=== PATIENT | female | born 1970 | race Caucasian/White ===

== ENCOUNTER 2017-01-28 08:15 | Inpatient (IN) | payer OTHER ==
[2017-01-28] VITALS (7 sets, daily range): BP systolic 101–134; BP diastolic 52–71; PULSE 67–79; RESP 18–19; TEMP 97.6–97.8
[~2017-01-28 08:15] MED LIST: LORTA5 PO
[2017-01-28] MEDS ORDERED: OXYTOCIN 30 UNITS-500ML PREMIX 500 ML ONE (08:30)
[2017-01-28] MEDS ORDERED: LIDOCAINE HCL 1% 50 ML VIAL ONE (08:30)
[2017-01-28] MEDS ORDERED: LACTATED RINGER'S 1000 ML INJ 1,000 ML IV SCH (08:33)
[2017-01-28] MEDS ORDERED: LACTATED RINGER'S 1000 ML INJ 1,000 ML IV PRN (08:33)
[2017-01-28] MEDS ORDERED: SODIUM CHLORID 0.9% 500 ML INJ 500 ML IV PRN (08:45)
[2017-01-28] MEDS ORDERED: LIDOCAINE HCL 1% 50 ML VIAL INFIL PRN (08:45)
[2017-01-28] MEDS ORDERED: CITRIC ACID-SODIUM CITRATE LIQ 30 ML UDC PO SCH (08:45)
[2017-01-28] MEDS ORDERED: LIDOCAINE HCL 1% 50 ML VIAL I-DERMAL PRN (08:45)
[2017-01-28] MEDS ORDERED: ONDANSETRON HCL 4 MG/2 ML VIAL IV PRN (08:45)
[2017-01-28] MEDS ORDERED: MINERAL OIL 10 ML VIAL TOPICAL PRN (08:45)
[2017-01-28] MEDS ORDERED: OXYTOCIN 30 UNITS-500ML PREMIX 500 ML IV ONE (08:45)
[2017-01-28] MEDS ORDERED: SODIUM CHLOR 0.9% 1000 ML INJ 1,000 ML IV PRN (08:53)
[2017-01-28 08:58] LABS: AUTOMATED NEUTROPHIL # 11.2 TH/MM3 (1.8-7.7); BASOPHIL % 0.3 % (0.0-2.0); EOSINOPHIL % 0.2 % (0.0-4.0); HEMATOCRIT 34.1 % (35.0-46.0); HEMO FLAGS DIFF FINAL; LYMPH % 12.1 % (9.0-44.0); LYMPHOCYTE # 1.7 TH/MM3 (1.0-4.8); MEAN CELL VOLUME 91.8 FL (80.0-100.0); MEAN CORPUSCULAR HEMOGLOBIN 30.9 PG (27.0-34.0); MEAN CORPUSCULAR HGB CONC 33.7 % (32.0-36.0); MONO % 6.5 % (0.0-8.0); NEUT % 80.9 % (16.0-70.0); PLATELET COUNT 337 TH/MM3 (150-450); RED BLOOD COUNT 3.71 MIL/MM3 (4.00-5.30); RED CELL DISTRIBUTION WIDTH 13.3 % (11.6-17.2); WHITE BLOOD COUNT 13.9 TH/MM3 (4.0-11.0)
[2017-01-28] MEDS ORDERED: SODIUM CHLORIDE 0.9% FLUSH 10 ML FLUSH IV FLUSH SCH (09:00)
[2017-01-28] MEDS ORDERED: ACETAMINOPHEN 325 MG TAB PO PRN (09:00)
[2017-01-28] MEDS ORDERED: DOCUSATE SODIUM 50 MG/SENNA 8.6 MG TAB PO PRN (09:00)
[2017-01-28] MEDS ORDERED: SODIUM CHLORIDE 0.9% FLUSH 10 ML FLUSH IV FLUSH PRN (09:00)
[2017-01-28] MEDS ORDERED: ONDANSETRON ODT 4 MG TAB PO PRN (09:00)
[2017-01-28] MEDS ORDERED: ALUMINUM/MAGNESIUM/SIMETH 30 ML CUP PO PRN (09:00)
[2017-01-28] MEDS ORDERED: ZOLPIDEM TARTRATE 5 MG TAB PO PRN (09:00)
[2017-01-28] MEDS ORDERED: BENZOCAINE 20% TOPICAL SPRAY 60 ML CAN TOPICAL PRN (09:00)
[2017-01-28] MEDS ORDERED: WITCH HAZEL 50%/GLYCERIN 12.5% 40 PAD JAR TOPICAL PRN (09:00)
--- NOTE | 2017-01-28 09:01 | HHI.HP ---
HPI Chief Complaint Contractions and LOF Date Seen: Jan 28, 2017 Travel History International Travel<30 Days: No Contact w/Intl Traveler<30Days: No Known Affected Area: No History of Present Illness HPI 47 yo at 37w 2d per SHERIE of 02-17-17, presents via EMS with contractions for several hours and LOF. Reports clear fluid leaking since 0400. Patient denies VB. Reports good FM. No care this . Para: 3 : 4 History Past Medical History Medical History: Denies Significant Hx Obstetric History Obstetric History FT x 3. BBB 8# 3oz Past Surgical History Surgical History: No Previous Surgery Family History Family History: Negative Social History Alcohol Use: No Tobacco Use: No Substance Abuse: Yes (Marijuana use in the past, last use unknown) Allergies-Medications (Allergen,Severity, Reaction): Coded Allergies: No Known Allergies (Verified , 01/28/17) Home Meds Active Scripts Hydrocodone-Acetaminophen 5-325 mg ([place] 5-325 mg)5 mg/325 mg Tab1 Tab PO Q6H PRN (PAIN) #15 TAB Prov:Ramón Callahan MD 07/24/15 Physical Exam AFVSS BP 134/71 Narrative GENERAL: Well-nourished, well-developed patient. SKIN: Warm and dry. HEAD: Normocephalic and atraumatic. EYES: No scleral icterus. No injection or drainage. ENT: No nasal drainage noted. Mucous membranes pink. Airway patent. NECK: Supple, trachea midline. No JVD. CARDIOVASCULAR: Regular rate and rhythm without murmurs, gallops, or rubs. RESPIRATORY: Breath sounds equal bilaterally. No accessory muscle use. BREASTS: Bilateral exam showed no masses , no retractions, no nipple discharge. ABDOMEN/GI: Abdomen soft, non-tender, bowel sounds present, no rebound, no guarding Gravid to [-] weeks size Fundal Height: [-] GENITOURINARY: External Genitalia: intact and normal in appearance BUS glands: [-] Cervix: [-] Dilatation: [9] Effacement: [90] Station: [0] Presentation: [-] Membranes: [ruptured] Uterine Contractions: [irregular] FHT's: discontinous tracing secondary to maternal movement Category: [-] Baseline: [140s] Reactive: [-] Variability: [moderate] Decels: [occasional variables] EXTREMITIES: No cyanosis or edema. BACK: Nontender without obvious deformity. No CVA tenderness. NEUROLOGICAL: Awake and alert. Motor and sensory grossly within normal limits. Five out of 5 muscle strength in all muscle groups. Normal speech. Data Data Orders Oxytocin 30 Units-500ml Premix (Pitocin (01/28/17 08:30) Lidocaine 1% Inj (50 Ml) (Xylocaine 1% I (01/28/17 08:30) Rubella Immune Status (01/28/17 08:33) Hepatitis Profile (01/28/17 08:33) Rapid Plasma Regin (Rpr) W Ttr (01/28/17 08:33) Type And Screen (01/28/17 08:33) Complete Blood Count With Diff (01/28/17 08:33) No Care Spec Serology (01/28/17 08:33) Special Serology (01/28/17 08:33) Admit To Inpatient (01/28/17 ) Code Status (01/28/17 08:33) Vital Signs (Adult) .Per protocol (01/28/17 08:33) ^ Heart (01/28/17 08:33) ^ Amnioinfusion (01/28/17 08:33) Urinary Catheter Management .ONCE (01/28/17 08:33) Lactated Ringer's 1000 Ml Inj (Lr 1000 M (01/28/17 08:33) Lactated Ringer's 1000 Ml Inj (Lr 1000 M (01/28/17 08:33) Sodium Chlorid 0.9% 500 Ml Inj (Ns 500 M (01/28/17 08:45) Sodium Chlor 0.9% 1000 Ml Inj (Ns 1000 M (01/28/17 08:53) Lidocaine 1% Inj (50 Ml) (Xylocaine 1% I (01/28/17 08:45) Citric Acid-Sodium Citrate Liq (Bicitra (01/28/17 08:45) Ondansetron Inj (Zofran Inj) (01/28/17 08:45) Fentanyl Inj (Fentanyl Inj) (01/28/17 08:45) Fentanyl Inj (Fentanyl Inj) (01/28/17 08:45) Hold Clot (01/28/17 08:33) Abo/Rh Blood Type (01/28/17 08:33) Urinalysis - C+S If Indicated (01/28/17 08:33) Resp Oxygen Non Rebreathe Mask (01/28/17 ) ^ Epidural / Intrathecal Infus (01/28/17 08:33) Oxytocin 30 Units-500ml Premix (Pitocin (01/28/17 08:45) Lidocaine 1% Inj (50 Ml) (Xylocaine 1% I (01/28/17 08:45) Light Mineral Oil (Muri-Lube Oil) (01/28/17 08:45) Inpatient Certification (01/28/17 ) Specimen To Be Collected PRN (01/28/17 08:33) Vital Signs (Adult) .QSHIFT (01/28/17 08:55) Activity Oob Ad Kaley (01/28/17 08:55) Ice / Cold Pack PRN (01/28/17 08:55) ^ Discontinue Iv (01/28/17 08:55) ^ Sitz Bath PRN (01/28/17 08:55) ^ Massage (01/28/17 08:55) ^ Rhogam (01/28/17 08:55) Urinary Catheter Management .PRN (01/28/17 08:55) Diet Regular Basic (01/28/17 Breakfast) Sodium Chloride 0.9% Flush (Ns Flush) (01/28/17 09:00) Sodium Chloride 0.9% Flush (Ns Flush) (01/28/17 09:00) Acetaminophen (Tylenol) (01/28/17 09:00) Ibuprofen (Motrin) (01/28/17 09:00) Benzocaine 20% Top Spr (Americaine 20% T (01/28/17 09:00) Witch Yesenia-Glycerin Pad (Tucks Pads) (01/28/17 09:00) Docusate Sodium-Senna (Angela-Colace) (01/28/17 09:00) Zolpidem (Ambien) (01/28/17 09:00) Cnmtfis-Swrst-[place] Inj (M-M-R Ii Inj) (01/28/17 16:00) Tiyh-Ruq-Hcxrgr (Booster) Inj (Boostrix (01/28/17 16:00) Al-Mag Hy-Si 40-40-4 Mg/Ml Liq (Mag-Al P (01/28/17 09:00) Ondansetron Odt (Zofran Odt) (01/28/17 09:00) Labs Laboratory Tests Test 01/28/17 08:26 White Blood Count 13.9 Red Blood Count 3.71 Hemoglobin 11.5 Hematocrit 34.1 Mean Corpuscular Volume 91.8 Mean Corpuscular Hemoglobin 30.9 Mean Corpuscular Hemoglobin 33.7 Concent Red Cell Distribution Width 13.3 Platelet Count 337 Mean Platelet Volume 7.3 Neutrophils (%) (Auto) 80.9 Lymphocytes (%) (Auto) 12.1 Monocytes (%) (Auto) 6.5 Eosinophils (%) (Auto) 0.2 Basophils (%) (Auto) 0.3 Neutrophils # (Auto) 11.2 Lymphocytes # (Auto) 1.7 Monocytes # (Auto) 0.9 Eosinophils # (Auto) 0.0 Basophils # (Auto) 0.0 CBC Comment DIFF FINAL Differential Comment Assessment/Plan Assessment and Plan 47 yo at 37w 2d, active labor/SROM/no care/AMA. Will admit. Obtain labs. Anticipate . Infant up for adoption- Management Planner consult. Madison Black MD Jan 28, 2017 09:01
--- NOTE | 2017-01-28 09:06 | PD.OB.DELI ---
Delivery Date: Jan 28, 2017 Anesthesia: None Episiotomy: None Vaginal Delivery: Normal, Spontaneous Presentation: Occiput anterior Nuchal Cord: None Delayed cord clamping (45 sec): No : Female One Minute : 8 Five Minute : 9 Weight: 3105 g Infant Care: Suctioned, Responded to stimulation Placenta: Spontaneous delivery, Intact, 3 vessel cord Laceration: Vaginal laceration, 1 deg Additional Information Vaginal delivery over an intact perineum. Apgars were 8/9. weight 3105 grams. Placenta delivered spontaneously intact with 3-vessel cord. There was a first degree laceration repaired with a figure of eight 2.0 chromic suture. Baby will be placed up for adoption. (Gage Robertson MD R1) Attestation Present for delivery and repair. Patient and infant stable in recovery. (Madison Black MD) Gage Robertson MD R1 Jan 28, 2017 09:06 Madison Black MD Jan 28, 2017 10:28
[2017-01-28] MEDS: IBUPROFEN 600 MG TAB PO PRN ×3 (09:23→19:24)
[2017-01-28 09:51] LABS: RUBELLA IGG ANTIBODY 49.4 IU/mL (10.0-500.0); RUBELLA STATUS IMMUNE (IMMUNE)
[2017-01-28 10:15] LABS: RAPID PLASMA REAGIN SCREEN NON-REACTIVE (NON-REACTVE)
[2017-01-28 11:35] LABS: AMPHETAMINE, URINE NEG (NEG); BARBITURATES, URINE NEG (NEG); COCAINE, URINE NEG (NEG)
[2017-01-28 11:46] LABS: BLOOD, URINE LARGE (NEG); COMMENT (UR) CULT NOT INDICATED; CULTURE IF INDICATED CULT NOT INDICATED; GLUCOSE,URINE NEG (NEG); HYALINE CAST, URINE 1 /lpf (RARE); KETONE, URINE 10 mg/dL (NEG); NITRITE,URINE NEG (NEG); SQUAMOUS EPITHELIAL CELL URINE <1 /hpf (0-5); URINE COLOR YELLOW (YELLW/STRAW)
[2017-01-28] MEDS ORDERED: DIPHTH/TETANUS/ACEL PERTUSSIS (BOOSTER) 0.5 ML VIAL/PFS IM ONE (16:00)
[2017-01-28] MEDS ORDERED: MEASLES, MUMPS, RUBELLA VACCINE 0.5 ML VIAL SQ ONE (16:00)
[2017-01-28] MEDS: oxyCODONE/ACETAMINOPHEN 5 MG/325 MG TAB PO PRN (23:30)
[2017-01-29] MEDS: IBUPROFEN 600 MG TAB PO PRN ×2 (06:30→12:56)
[2017-01-29] MEDS: oxyCODONE/ACETAMINOPHEN 5 MG/325 MG TAB PO PRN (06:34)
--- NOTE | 2017-01-29 07:29 | HHI.OB ---
Subjective Post Day: 1 Remarks day # 1. AFVSS overnight. Pain controlled. Decreased lochia. Denies dysuria. No breast tenderness. She is feeding the baby via bottle. Appetite good. No nausea or vomiting. Positive flatus. Negative bowel movement. Ambulating well. Denies calf pain, shortness of breath, or cough. Otherwise, she is doing well this morning and has no other complaints. (Alek Dillon MD R2) Objective Vitals/I&O Vital Signs Date Time Temp Pulse Resp B/P Pulse Ox O2 Delivery O2 Flow Rate FiO2 01/29/17 00:30 16 01/28/17 10:45 97.8 74 18 113/71 01/28/17 10:00 18 01/28/17 09:46 67 105/52 01/28/17 09:31 79 101/60 01/28/17 09:30 97.6 19 01/28/17 09:28 72 107/65 01/28/17 09:09 67 134/71 Objective Remarks GENERAL: Well-nourished, well-developed patient. CARDIOVASCULAR: Regular rate and rhythm without murmurs, gallops, or rubs. RESPIRATORY: Breath sounds equal bilaterally. No accessory muscle use. ABDOMEN/GI: Abdomen soft, non-tender. Fundus: Firm, non-tender at umbilicus. GENITOURINARY: Light to moderate bleeding. EXTREMITIES: No cyanosis or edema, non-tender, without signs of DVT. Medications and IVs Current Medications Medications (Trade) Dose Ordered Sig/Goldie Route Start Time Stop Time Status Last Admin Lactated Ringer's 1,000 ml @ 125 mls/hr Q8H IV 01/28/17 08:33 Lactated Ringer's 1,000 ml @ 3,000 mls/hr Q20M PRN IV 01/28/17 08:33 Sodium Chloride 500 ml @ 1,000 mls/hr ONCE PRN IV 01/28/17 08:45 01/30/17 08:44 (NS 1000 ml Inj) 1,000 ml @ 100 mls/hr Q10H PRN IV 01/28/17 08:53 (Zofran Inj) 4 mg Q6H PRN IV 01/28/17 08:45 (fentaNYL INJ) 50 mcg Q1H PRN IV PUSH 01/28/17 08:45 (fentaNYL INJ) 100 mcg Q1H PRN IV PUSH 01/28/17 08:45 (Muri-Lube Oil) 10 ml UNSCH PRN TOPICAL 01/28/17 08:45 (NS Flush) 2 ml BID IV FLUSH 01/28/17 09:00 (NS Flush) 2 ml UNSCH PRN IV FLUSH 01/28/17 09:00 (Tylenol) 650 mg Q4H PRN PO 01/28/17 09:00 01/28/17 19:25 (Motrin) 600 mg Q6H PRN PO 01/28/17 09:00 01/29/17 06:30 (Americaine 20% Top Spr) 1 spray Q4H PRN TOPICAL 01/28/17 09:00 01/28/17 13:37 (Tucks Pads) 1 applic QID PRN TOPICAL 01/28/17 09:00 01/28/17 13:37 (Angela-Colace) 2 tab Q12H PRN PO 01/28/17 09:00 01/28/17 19:25 (Ambien) 5 mg HS PRN PO 01/28/17 09:00 (Mag-Al Plus Susp Liq) 15 ml Q8H PRN PO 01/28/17 09:00 01/28/17 20:07 (Zofran Odt) 4 mg Q6H PRN PO 01/28/17 09:00 (Flu (Quadrivalent) Vaccine Inj) 0.5 ml ONCE ONCE IM 01/29/17 10:00 01/29/17 10:01 (Percocet 5-325 Mg) 2 tab Q6H PRN PO 01/28/17 23:00 01/29/17 06:34 (Alek Dillon MD R2) Assessment/Plan Problem List: (1) Vaginal delivery (2) care following vaginal delivery Assessment and Plan 47 y/o female who is PPD# 1 s/p . -Continue routine care. -Percocet and Motrin PRN pain. -Encouraged OOB. Advised pelvic rest for 6 wks. -Will need a f/u appt. within 6 wks. -Re: ctrl, she would like to schedule to get her tubes tied. -D/c in 1-2 more days. wdw OB attending Discharge Planning Discharge planning for tomorrow (Alek Dillon MD R2) Collaborating MD Comments Agree with care management (Linda Hamilton MD) Alek Dillon MD R2 Jan 29, 2017 07:29 Linda Hamilton MD Jan 29, 2017 08:19
[2017-01-29 07:53] VITALS: BP 132/84; PULSE 80; RESP 20; TEMP 98.1
[2017-01-29] MEDS ORDERED: INFLUENZA VIRUS VACCINE (QUADRIVALENT) 0.5 ML SYR IM ONE (10:00)
== END 2017-01-29 13:56 | disposition home or self-care (01) | DRG 775 ==
LOC: HOBED 08:15 → H2EA 08:18 → H2EB 08:36 → H1EA 10:25
PROVIDERS: ADMIT Obstetrics & Gynecology; ATTEND Obstetrics & Gynecology
PROC: 10E0XZZ Delivery of Products of Conception, External Approach (ICD-10-PCS; principal; 2017-01-28)
PROC: 0HQ9XZZ Repair Perineum Skin, External Approach (ICD-10-PCS; 2017-01-28)
DX: O70.0 First degree perineal laceration during delivery (principal); O09.33 Supervision of pregnancy with insufficient antenatal care, third trimester; Z37.0 Single live birth; Z3A.37 37 weeks gestation of pregnancy
CPT/HCPCS: 59025; 80074; 80307; 81001; 85025; 86592; 86703; 86762; 86850; 86900; 86901; 88307; 99285; J2590

== ENCOUNTER 2017-01-29 23:54 | Emergency (ER) | payer OTHER ==
[~2017-01-29] VITALS: Ht 182.9 cm; Wt 91.0 kg
[2017-01-29 23:57] VITALS: BP 152/80; PULSE 95; RESP 20; TEMP 97.9; O2SAT 95
--- NOTE | 2017-01-30 07:54 | PD ---
History of Present Illness Date Seen: Jan 30, 2017 Time Seen: 00:30 History of Present Illness This patient is 47-year-old white female who is a 1 day from vaginal delivery. She delivered and the baby up for adoption. That she requested to be discharged home on the same day and states she was having normal exam and progress she was allowed to go home. She now returns some 12 hours later for pain bleeding and distention of her stomach. On exam the patient has slight distention of the abdomen of gas uterus is at the umbilicus and firm, there is no excessive bleeding noted here on the triage area I explained the patient that she's having some normal events with the occasional passage of blood clot per vagina and some abdominal distention due to some mild constipation and I recommended she take milk of magnesia or other antacids to try and solve her gaseous state. She is to take Motrin or Advil for cramps bedrest heating pad and take plenty of fluids, and she was discharged from OB ED Milan Willett II, MD Jan 30, 2017 07:54
--- NOTE | 2017-01-30 08:19 | PD ---
HPI Travel History International Travel<30 Days: No Contact w/Intl Traveler<30Days: No Known Affected Area: No Allergies-Medications (Allergen,Severity, Reaction): Coded Allergies: No Known Allergies (Verified , 01/29/17) Home Meds Active Scripts Hydrocodone-Acetaminophen 5-325 mg ([place] 5-325 mg)5 mg/325 mg Tab1 Tab PO Q6H PRN (PAIN) #15 TAB Prov:Ramón Callahan MD 07/24/15 Physical Exam Vital Signs Date Time Temp Pulse Resp B/P Pulse Ox O2 Delivery O2 Flow Rate FiO2 01/29/17 23:57 97.9 95 20 152/80 95 Room Air Narrative ABDOMEN/GI: Abdomen soft, non-tender, bowel sounds present, no rebound, no guarding Fundal Height: [-]at umbilicus EXTREMITIES: No cyanosis or edema. BACK: Nontender without obvious deformity. No CVA tenderness. NEUROLOGICAL: Awake and alert. Motor and sensory grossly within normal limits. Five out of 5 muscle strength in all muscle groups. Normal speech. Data Data Orders Attending Discharge Order (01/30/17 ) MDM Diagnosis Diagnosis: Primary Impression: Abdominal pain Additional Impression: Bloated abdomen Disposition: 01 DISCHARGE HOME Condition: Stable Patient Instructions: General Instructions Additional Instructions: RETURN FOR HEAVY VAGINAL BLEEDING WITH CLOTS RETURN FOR HEADACHE, BLURRED VISION, SPOTS BEFORE YOUR EYES LIMITED ACTIVITY FOR THE NEXT 48 HOURS KEEP SCHEDULED FOLLOWUP APPOINTMENT Departure Forms: Tests/Procedures Milan Willett II, MD Jan 30, 2017 08:19
== END 2017-01-30 09:01 | disposition home or self-care (01) ==
LOC: HOBED 23:54
DX: O90.89 Other complications of the puerperium, not elsewhere classified (principal); R14.0 Abdominal distension (gaseous); K59.00 Constipation, unspecified; R10.9 Unspecified abdominal pain
CPT/HCPCS: 99283

== ENCOUNTER 2017-02-02 21:58 | Emergency (ER) | payer OTHER ==
[~2017-02-02] VITALS: Ht 182.9 cm; Wt 78.2 kg
[2017-02-02 22:12] VITALS: BP 138/98; PULSE 109; RESP 22; TEMP 98.8; O2SAT 95
[2017-02-02] MEDS ORDERED: LORazepam 2 MG/ML VIAL IV PUSH ONE (22:45)
[2017-02-02 23:02] LABS: AUTOMATED NEUTROPHIL # 7.4 TH/MM3 (1.8-7.7); BASOPHIL # 0.1 TH/MM3 (0-0.2); BASOPHIL % 0.5 % (0.0-2.0); EOSINOPHIL % 0.4 % (0.0-4.0); HEMO FLAGS DIFF FINAL; LYMPH % 17.7 % (9.0-44.0); LYMPHOCYTE # 1.8 TH/MM3 (1.0-4.8); MEAN CELL VOLUME 92.1 FL (80.0-100.0); MEAN CORPUSCULAR HEMOGLOBIN 31.7 PG (27.0-34.0); MEAN CORPUSCULAR HGB CONC 34.4 % (32.0-36.0); NEUT % 74.4 % (16.0-70.0); PLATELET COUNT 529 TH/MM3 (150-450); RED BLOOD COUNT 4.01 MIL/MM3 (4.00-5.30); RED CELL DISTRIBUTION WIDTH 13.7 % (11.6-17.2)
[2017-02-02 23:24] LABS: BICARBONATE 22.5 MEQ/L (21.0-32.0); POTASSIUM 3.5 MEQ/L (3.5-5.1)
[2017-02-02 23:40] LABS: BACTERIA, URINE RARE /hpf; BLOOD, URINE MOD (NEG); COMMENT (UR) CULTURE INDICATED; CULTURE IF INDICATED CULTURE INDICATED; GLUCOSE,URINE NEG (NEG); HYALINE CAST, URINE 1 /lpf (RARE); KETONE, URINE NEG (NEG); MUCUS URINE FEW /lpf (OCC); NITRITE,URINE NEG (NEG); SQUAMOUS EPITHELIAL CELL URINE 2 /hpf (0-5); URINE COLOR YELLOW (YELLW/STRAW)
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
[2017-02-03 02:04] LABS: AMPHETAMINE, URINE NEG (NEG); BARBITURATES, URINE NEG (NEG); COCAINE, URINE POS (NEG)
[2017-02-03 02:58] VITALS: BP 111/57; PULSE 64; RESP 17; O2SAT 98
[2017-02-03 06:41] VITALS: BP 111/57; PULSE 71; RESP 18; O2SAT 98
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
[2017-02-03 15:39] VITALS: BP_SYST 103; PULSE 76; RESP 18; TEMP 97.8; O2SAT 99
[2017-02-03 22:12] VITALS: BP 106/63; PULSE 59; RESP 18; O2SAT 97
[2017-02-04 02:04] VITALS: BP 123/82; PULSE 75; RESP 19; O2SAT 95
[2017-02-04 06:30] VITALS: BP 123/69; PULSE 73; RESP 18; O2SAT 95
--- NOTE | 2017-02-04 09:27 | HHI.PYPN ---
Subjective Remarks Patient seen and examined. Chart reviewed. Case d/w RN. Patient passed an uneventful evening. This morning for me, patient is clear-thinking with no evidence of ongoing psychosis. Mood fair; no depressive or hypomanic/manic symptoms in evidence. Denies SI/HI. Denies AVH. No ongoing delusional material. No evidence of unstable mood, anxiety, psychotic disorder. Admits to recent use of flakka and crack cocaine. Past psych history: Includes history of depression. Not presently in outpatient psychiatric care. On no psychotropics. Denies any psychiatric admissions or suicide attempts. Family history: Denies family history of serious mental illness or suicide. Patient is requesting discharge from the ED. Review of Systems Except as stated in HPI: all other systems reviewed are Neg Objective Alert: Yes [place]: Person, Place, Date, Situation Mood: Calm Affect: Blunted Memory Intact: Comment (seems at least fair on clinical exam) Hallucinations: Other (denies audiovisual hallucinations) Delusions: No Delusion Type: Other (no delusional material) Suicidal: Ideation (denies suicidal ideation) Homicidal: Ideation (denies homicidal ideation) Insight/Judgement Poor, particularly with respect substance use Remarks No motoric abnormalities noted. Thought process linear. Grooming and hygiene fair. Labs Date/Time Procedure Status Source Growth 02/02/17 22:50 Urine Culture - Preliminary Resulted Urine Clean Catch NO GROWTH IN 24 HOURS. Labs reviewed. Vitals/IOs Vital Signs Date Time Temp Pulse Resp B/P Pulse Ox O2 Delivery O2 Flow Rate FiO2 02/04/17 06:30 73 18 123/69 95 Room Air 02/03/17 15:39 97.8 Assessment & Plan Problem List: (1) Substance-induced psychotic disorder with delusions Assessment & Plan: Resolved ICD Code: F19.950 (2) Stimulant abuse Assessment & Plan: Flakka ICD Code: F15.10 (3) Cocaine abuse ICD Code: F14.10 Assessment & Plan Drug-induced psychotic disorder now resolved. No evidence of any unstable mood , anxiety or psychotic disorder in this patient at this time. Denies SI or HI. Appears to be attending to basic needs. Patient does not meet Galvez act criteria. Lift Galvez act. Patient is unfortunately pre-contemplative with regards to changing her pattern of substance use and declines my offer of transfer to addiction treatment facility. Nurse to provide outpatient referral for same on discharge. RN educated patient's family member re: [place] Act. Patient is otherwise psychiatrically clear for discharge from the ED. Case discussed with RN. Justification for Cont. Inpt. . Request HC Surrog/Guard Advoc?: No Ramón Eldridge MD Feb 04, 2017 09:27
[2017-02-04 10:00] VITALS: BP 118/64; PULSE 73; RESP 18
== END 2017-02-04 12:07 | disposition home or self-care (01) ==
LOC: NEPA 21:58 → NEPJ 02-04 12:07
DX: O90.89 Other complications of the puerperium, not elsewhere classified (principal); F19.950 Other psychoactive substance use, unspecified with psychoactive substance-induced psychotic disorder with delusions; F15.10 Other stimulant abuse, uncomplicated; F14.10 Cocaine abuse, uncomplicated; Z72.0 Tobacco use; Z86.79 Personal history of other diseases of the circulatory system
CPT/HCPCS: 80048; 80307; 81001; 85025; 87086; 96374; 99285; J2060

== ENCOUNTER 2017-03-20 06:09 | Inpatient (IN) | payer OTHER ==
[~2017-03-20] VITALS: Ht 172.7 cm; Wt 65.6 kg
[2017-03-20] VITALS (12 sets, daily range): BP systolic 89–115; BP diastolic 55–69; PULSE 71–150; RESP 17–25; TEMP 96.5–100.6; O2SAT 94–100
[2017-03-20] MEDS ORDERED: SODIUM CHLOR 0.9% 1000 ML INJ 1,000 ML IV SCH (06:17)
--- NOTE | 2017-03-20 06:29 | PD ---
HPI Chief Complaint: Psychiatric Symptoms Time Seen by Provider: 06:17 Travel History International Travel<30 days: No Contact w/Intl Traveler<30days: No Traveled to known affect area: No History of Present Illness HPI 47-year-old female presents to the emergency department restrained by police and police custody with acute altered mental status agitation and fighting and acute psychosis. Patient was found running through the streets and into traffic by the police partially clothed. Patient had to be tackled to the ground to be restrained by the police who report she did sustain some abrasions to her chest wall and abdomen and trunk while fighting off the police and also ran directly into a wall while trying to escape the police; subsequently successfully apprehended and brought to the hospital. Patient mentioned intermittently through her confused and altered state possible ingestion of flocka, cocaine, and alcohol. Patient repeatedly states that she is being stabbed and that someone has taken her baby and that she is being poisoned. Additional information is unable to be obtained and not available. PFSH Past Medical History Narrative Medical Review of medical records and nursing notes; heart murmur polysubstance abuse; nursing notes reviewed Cardiovascular Problems: Yes (MURMUR) Diminished Hearing: No Immunizations Current: Yes Tetanus Vaccination: Unknown Influenza Vaccination: No ?: Not : 5 Para: 3 Miscarriage: 1 : 1 Social History Alcohol Use: Yes Tobacco Use: Yes Substance Use: Yes (1 [employer] cigarettes, Flakka, Etoh occasionally, Crack weekly) Allergies-Medications (Allergen,Severity, Reaction): Coded Allergies: No Known Allergies (Verified , 03/20/17) Reported Meds & Prescriptions Reported Meds & Active Scripts Active Active Prescriptions or Reported Medications Unobtainable Review of Systems ROS Limitations: Clinical Condition, Intoxication, Altered Mental Status, Uncooperative, Combative Except as stated in HPI: all other systems reviewed are Neg Physical Exam Narrative GENERAL: Well-developed disheveled agitated combative and uncooperative altered female in no respiratory distress; GCS 12-13 SKIN: Warm and dry. HEAD: Atraumatic. Normocephalic. No palpable scalp soft tissue swelling or bony abnormality no noted abrasion or laceration. EYES: Pupils equal and round. No scleral icterus. No injection or drainage. ENT: No nasal bleeding or discharge. Mucous membranes pink and moist. NECK: Trachea midline. No JVD. Supple. No palpable bony step-off. CARDIOVASCULAR: Regular rate and rhythm. Chest wall: Multiple superficial abrasions to the left chest wall no lacerations no bony step-off or crepitus. RESPIRATORY: No accessory muscle use. Clear to auscultation. Breath sounds equal bilaterally. GASTROINTESTINAL: Abdomen soft, non-tender, nondistended. Hepatic and splenic margins not palpable. Multiple superficial abrasions to the abdominal wall. MUSCULOSKELETAL: Extremities without clubbing, cyanosis, or edema. No obvious deformities. Superficial abrasions to bilateral knees and hands. Patient demonstrates full range of motion of both upper and lower extremities. NEUROLOGICAL: Awake and alert. No obvious cranial nerve deficits. Motor grossly within normal limits. Five out of 5 muscle strength in the arms and legs. Normal speech. PSYCHIATRIC: Acutely altered and psychotic and combative. Data Data Last Documented VS Vital Signs Date Time Temp Pulse Resp B/P Pulse Ox O2 Delivery O2 Flow Rate FiO2 03/20/17 06:54 134 03/20/17 06:31 24 03/20/17 06:27 98 Room Air 03/20/17 06:14 115/69 Orders Electrocardiogram (03/20/17 06:17) Complete Blood Count With Diff (03/20/17 06:17) Comprehensive Metabolic Panel (03/20/17 06:17) Creatine Kinase (Cpk) (03/20/17 06:17) Prothrombin Time / Inr (Pt) (03/20/17 06:17) Act Partial Throm Time (Ptt) (03/20/17 06:17) Troponin I (03/20/17 06:17) Thyroid Stimulating Hormone (03/20/17 06:17) Urinalysis - C+S If Indicated (03/20/17 06:17) Blood Culture (03/20/17 06:17) Chest, Single Ap (03/20/17 06:17) Ct Brain W/O Iv Contrast(Rout) (03/20/17 06:17) Blood Glucose (03/20/17 06:17) Ecg Monitoring (03/20/17 06:17) Iv Access Insert/Monitor (03/20/17 06:17) Oximetry (03/20/17 06:17) Sodium Chloride 0.9% Flush (Ns Flush) (03/20/17 06:30) Sodium Chlor 0.9% 1000 Ml Inj (Ns 1000 M (03/20/17 06:17) Drug Screen, Random Urine (03/20/17 06:17) Alcohol (Ethanol) (03/20/17 06:17) Salicylates (Aspirin) (03/20/17 06:17) Tylenol (Acetaminophen) (03/20/17 06:17) Lorazepam Inj (Ativan Inj) (03/20/17 06:30) Magnesium (Mg) (03/20/17 06:17) Ed Urine Pregnancytest Poc (03/20/17 06:17) Lorazepam Inj (Ativan Inj) (03/20/17 06:30) Blood Culture (03/20/17 06:32) Lactic Acid Sepsis Protocol (03/20/17 06:32) Cefepime Inj (Maxipime Inj) (03/20/17 06:45) Vancomycin Inj (Vancomycin Inj) (03/20/17 06:45) Urinary Catheter Insert/Apply (03/20/17 06:32) Ondansetron Inj (Zofran Inj) (03/20/17 07:00) Sodium Chlor 0.9% 1000 Ml Inj (Ns 1000 M (03/20/17 07:00) Labs Laboratory Tests Test 03/20/17 06:20 White Blood Count 20.3 TH/MM3 Red Blood Count 4.30 MIL/MM3 Hemoglobin 13.0 GM/DL Hematocrit 39.5 % Mean Corpuscular Volume 91.8 FL Mean Corpuscular Hemoglobin 30.3 PG Mean Corpuscular Hemoglobin 33.0 % Concent Red Cell Distribution Width 13.7 % Platelet Count 519 TH/MM3 Mean Platelet Volume 7.9 FL Neutrophils (%) (Auto) 90.6 % Lymphocytes (%) (Auto) 5.9 % Monocytes (%) (Auto) 3.4 % Eosinophils (%) (Auto) 0.0 % Basophils (%) (Auto) 0.1 % Neutrophils # (Auto) 18.4 TH/MM3 Lymphocytes # (Auto) 1.2 TH/MM3 Monocytes # (Auto) 0.7 TH/MM3 Eosinophils # (Auto) 0.0 TH/MM3 Basophils # (Auto) 0.0 TH/MM3 CBC Comment DIFF FINAL Differential Comment Prothrombin Time 11.6 SEC Prothromb Time International 1.0 RATIO Ratio Activated Partial 29.1 SEC Thromboplast Time Salicylates Level 3.2 MG/DL MDM Medical Decision Making Medical Screen Exam Complete: Yes Emergency Medical Condition: Yes Medical Record Reviewed: Yes Interpretation(s) EKG sinus tachycardia rate 134 incomplete right bundle-branch block pattern QRS 98 ms QT 343 with QTC of 422 ms Differential Diagnosis Acute psychosis, polysubstance ingestion, ICH, CHI; unknown substance ingestion consider neuroleptic malignant syndrome, sepsis Narrative Course Patient placed in violent restraints; IV access obtained; patient placed on cardiac monitors; specimens collected and sent for resulting; patient administered Ativan 2 mg IV; normal saline bolus 1 L Patient ordered additional Ativan 2 mg IV; Patient sent for imaging studies Urinary catheter inserted rectal temperature 100.6F blood cultures and lactic acid obtained patient presumptively administered cefepime and vancomycin IV for sepsis unknown source EKG sinus tachycardia rate 134 incomplete right bundle-branch block pattern QRS 98 ms QT 343 with QTC of 422 ms Tetanus status current as of 01/2017 6:50 AM patient is identified to have leukocytosis 20,300 with left shift 90% neutrophils; patient has received presumptive IV antibiotic coverage and is on way to CT for imaging. Patient required Ativan 1 mg IV @ 0700 care signed over to Dr Tomas Sepsis Criteria SIRS Criteria (2 or more): Heart rate over 90, RR > 20 or PaCO2 < 32, WBC > 51962, < 4000 or > 10% bands Diagnosis Primary Impression: Substance-induced psychotic disorder with delusions Admitting Information Admitting Physician Requests: Admit Scripts Unable to Obtain Active Prescriptions or Reported Meds Anna Garg MD March 20, 2017 06:29
[2017-03-20] MEDS ORDERED: SODIUM CHLORIDE 0.9% FLUSH 10 ML FLUSH IVF PRN (06:30)
[2017-03-20] MEDS ORDERED: LORazepam 2 MG/ML VIAL IV PUSH ONE ×3 (06:30→07:15)
[2017-03-20] MEDS ORDERED: CEFEPIME INJ 2,000 MG in SODIUM CHLORIDE 0.9% INJ 100 ML IV ONE (06:45)
[2017-03-20] MEDS ORDERED: VANCOMYCIN INJ 1,000 MG in SODIUM CHLOR 0.9% 250 ML INJ 250 ML IV ONE (06:45)
[2017-03-20 06:47] LABS: AUTOMATED NEUTROPHIL # 18.4 TH/MM3 (1.8-7.7); BASOPHIL % 0.1 % (0.0-2.0); HEMATOCRIT 39.5 % (35.0-46.0); HEMO FLAGS DIFF FINAL; LYMPH % 5.9 % (9.0-44.0); LYMPHOCYTE # 1.2 TH/MM3 (1.0-4.8); MEAN CELL VOLUME 91.8 FL (80.0-100.0); MEAN CORPUSCULAR HEMOGLOBIN 30.3 PG (27.0-34.0); MONO % 3.4 % (0.0-8.0); NEUT % 90.6 % (16.0-70.0); PLATELET COUNT 519 TH/MM3 (150-450); RED CELL DISTRIBUTION WIDTH 13.7 % (11.6-17.2); WHITE BLOOD COUNT 20.3 TH/MM3 (4.0-11.0)
[2017-03-20 06:50] LABS: APTT (PATIENT) 29.1 SEC (24.3-30.1); PROTHROMBIN TIME - PATIENT 11.6 SEC (9.8-11.6)
[2017-03-20 06:57] LABS: ANION GAP 18 MEQ/L (5-15); AST (GOT) 51 U/L (15-37); BICARBONATE 16.4 MEQ/L (21.0-32.0); BLOOD UREA NITROGEN 26 MG/DL (7-18); CHLORIDE 101 MEQ/L (98-107); MAGNESIUM 2.1 MG/DL (1.5-2.5); SODIUM (NA) 135 MEQ/L (136-145)
[2017-03-20 07:00] LABS: BACTERIA, URINE FEW /hpf; BLOOD, URINE MOD (NEG); COMMENT (UR) CATH-CULTURE IND; CULTURE IF INDICATED CATH CULTURE IND; GLUCOSE,URINE NEG (NEG); HYALINE CAST, URINE 14 /lpf (RARE); KETONE, URINE NEG (NEG); MUCUS URINE FEW /lpf (OCC); NITRITE,URINE NEG (NEG); PH, URINE 5.5 (5.0-8.5); URINE COLOR YELLOW (YELLW/STRAW)
[2017-03-20] MEDS ORDERED: SODIUM CHLOR 0.9% 1000 ML INJ 1,000 ML IV ONE ×2 (07:00→08:00)
[2017-03-20] MEDS ORDERED: ONDANSETRON HCL 4 MG/2 ML VIAL IV PUSH ONE (07:00)
[2017-03-20 07:10] LABS: AMPHETAMINE, URINE NEG (NEG); BARBITURATES, URINE NEG (NEG); COCAINE, URINE POS (NEG)
[2017-03-20 07:12] LABS: ALKALINE PHOSPHATASE 130 U/L (45-117); ALT (GPT) 29 U/L (10-53); CREATINE KINASE 1000 U/L (26-192); GLOMERULAR FILTRATION RATE 36 ML/MIN (>89); TOTAL BILIRUBIN ADULT 0.5 MG/DL (0.2-1.0)
--- NOTE | 2017-03-20 07:15 | PD ---
Physical Exam Date Seen by Provider: March 20, 2017 Narrative Care assumed at 7 AM. The patient is being evaluated for acute psychosis, probably induced by flakka. The patient is very uncooperative. Data Data Last Documented VS Vital Signs Date Time Temp Pulse Resp B/P Pulse Ox O2 Delivery O2 Flow Rate FiO2 03/20/17 07:13 113 25 100/55 94 Nasal Cannula 2 03/20/17 06:14 100.6 Orders Electrocardiogram (03/20/17 06:17) Complete Blood Count With Diff (03/20/17:17) Comprehensive Metabolic Panel (03/20/17 06:17) Creatine Kinase (Cpk) (03/20/17 06:17) Prothrombin Time / Inr (Pt) (03/20/17:17) Act Partial Throm Time (Ptt) (03/20/17:17) Troponin I (03/20/17:17) Thyroid Stimulating Hormone (03/20/17:17) Urinalysis - C+S If Indicated (03/20/17 06:17) Blood Culture (03/20/17 06:17) Chest, Single Ap (03/20/17 06:17) Ct Brain W/O Iv Contrast(Rout) (03/20/17 06:17) Blood Glucose (03/20/17 06:17) Ecg Monitoring (03/20/17:17) Iv Access Insert/Monitor (03/20/17:17) Oximetry (03/20/17 06:17) Sodium Chloride 0.9% Flush (Ns Flush) (03/20/17 06:30) Sodium Chlor 0.9% 1000 Ml Inj (Ns 1000 M (03/20/17 06:17) Drug Screen, Random Urine (03/20/17 06:17) Alcohol (Ethanol) (03/20/17 06:17) Salicylates (Aspirin) (03/20/17 06:17) Tylenol (Acetaminophen) (03/20/17 06:17) Lorazepam Inj (Ativan Inj) (03/20/17 06:30) Magnesium (Mg) (03/20/17 06:17) Ed Urine Pregnancytest Poc (03/20/17 06:17) Lorazepam Inj (Ativan Inj) (03/20/17 06:30) Blood Culture (03/20/17 06:32) Lactic Acid Sepsis Protocol (03/20/17 06:32) Cefepime Inj (Maxipime Inj) (03/20/17 06:45) Vancomycin Inj (Vancomycin Inj) (03/20/17 06:45) Urinary Catheter Insert/Apply (03/20/17 06:32) Ondansetron Inj (Zofran Inj) (03/20/17 07:00) Sodium Chlor 0.9% 1000 Ml Inj (Ns 1000 M (03/20/17 07:00) Urine Culture (03/20/17 06:25) Lorazepam Inj (Ativan Inj) (03/20/17 07:15) Lorazepam Inj (Ativan Inj) (03/20/17 07:15) CKMB (03/20/17 06:20) CKMB% (03/20/17 06:20) Sodium Chlor 0.9% 1000 Ml Inj (Ns 1000 M (03/20/17 08:00) Admit Order (Ed Use Only) (03/20/17 09:03) Labs Laboratory Tests Test 03/20/17 03/20/17 03/20/17 06:20 06:25 06:50 White Blood Count 20.3 TH/MM3 Red Blood Count 4.30 MIL/MM3 Hemoglobin 13.0 GM/DL Hematocrit 39.5 % Mean Corpuscular Volume 91.8 FL Mean Corpuscular Hemoglobin 30.3 PG Mean Corpuscular Hemoglobin 33.0 % Concent Red Cell Distribution Width 13.7 % Platelet Count 519 TH/MM3 Mean Platelet Volume 7.9 FL Neutrophils (%) (Auto) 90.6 % Lymphocytes (%) (Auto) 5.9 % Monocytes (%) (Auto) 3.4 % Eosinophils (%) (Auto) 0.0 % Basophils (%) (Auto) 0.1 % Neutrophils # (Auto) 18.4 TH/MM3 Lymphocytes # (Auto) 1.2 TH/MM3 Monocytes # (Auto) 0.7 TH/MM3 Eosinophils # (Auto) 0.0 TH/MM3 Basophils # (Auto) 0.0 TH/MM3 CBC Comment DIFF FINAL Differential Comment Prothrombin Time 11.6 SEC Prothromb Time International 1.0 RATIO Ratio Activated Partial 29.1 SEC Thromboplast Time Sodium Level 135 MEQ/L Potassium Level 4.0 MEQ/L Chloride Level 101 MEQ/L Carbon Dioxide Level 16.4 MEQ/L Anion Gap 18 MEQ/L Blood Urea Nitrogen 26 MG/DL Creatinine 1.56 MG/DL Estimat Glomerular Filtration 36 ML/MIN Rate Random Glucose 236 MG/DL Calcium Level 8.9 MG/DL Magnesium Level 2.1 MG/DL Total Bilirubin 0.5 MG/DL Aspartate Amino Transf 51 U/L (AST/SGOT) Alanine Aminotransferase 29 U/L (ALT/SGPT) Alkaline Phosphatase 130 U/L Total Creatine Kinase 1000 U/L Creatine Kinase MB 5.5 NG/ML Creatine Kinase MB % 0.6 % Troponin I LESS THAN 0.02 NG/ML Total Protein 7.8 GM/DL Albumin 2.6 GM/DL Thyroid Stimulating Hormone 2.100 uIU/ML 3rd Gen Salicylates Level 3.2 MG/DL Acetaminophen Level LESS THAN 2.0 MCG/ML Ethyl Alcohol Level LESS THAN 3 MG/DL Urine Color YELLOW Urine Turbidity HAZY Urine pH 5.5 Urine Specific [place] 1.030 Urine Protein 30 mg/dL Urine Glucose (UA) NEG mg/dL Urine Ketones NEG mg/dL Urine Occult Blood MOD Urine Nitrite NEG Urine Bilirubin NEG Urine Urobilinogen 2.0 MG/DL Urine Leukocyte Esterase NEG Urine RBC /hpf Urine WBC 5 /hpf Urine Amorphous Sediment RARE Urine Bacteria FEW /hpf Urine Hyaline Casts 14 /lpf Urine Mucus FEW /lpf Microscopic Urinalysis Comment CATH-CULTURE IND Urine Opiates Screen NEG Urine Barbiturates Screen NEG Urine Amphetamines Screen NEG Urine Benzodiazepines Screen NEG Urine Cocaine Screen POS Urine Cannabinoids Screen POS Lactic Acid Level 4.3 mmol/L MDM Supervised Visit with FABIEN: No Narrative Course CBC & BMP Diagram 03/20/17 06:20 Lactic acid level is 4.3. CK is 1000. Cardiac enzymes are negative. Her urine is tea colored and is positive for blood. Tox screen is positive for cocaine and THC. This patient has rhabdomyolysis. She has lactic acidosis. She needs to be admitted to the hospital for IV fluids before she can be medically cleared for evaluation by psychiatry. Last Impressions Head CT 03/20/17616 Signed Impressions: Service Date/Time: Monday, March 20, 2017 06:57 - CONCLUSION: Normal examination. Tushar De La Torre MD Chest X-Ray 03/20/17616 Signed Impressions: Service Date/Time: Monday, March 20, 2017 08:24 - CONCLUSION: 1. Left lower lobe infiltrate. Tushar De La Torre MD The chest x-ray was independently viewed by me. Sepsis Criteria SIRS Criteria (2 or more): Heart rate over 90, RR > 20 or PaCO2 < 32, WBC > 35085, < 4000 or > 10% bands Sepsis Criteria (SIRS+source): Infect source susp/known Severe Sepsis (+one): Lactate >2 Physician Communication Physician Communication The patient is being admitted to the residents' service. Diagnosis Primary Impression: Substance-induced psychotic disorder with delusions Additional Impressions: Pneumonia Qualified Code: J18.1 - Pneumonia of left lower lobe due to infectious organism Rhabdomyolysis Qualified Code: M62.82 - Non-traumatic rhabdomyolysis Lactic acidosis Severe sepsis Admitting Information Admitting Physician Requests: Admit Scripts Unable to Obtain Active Prescriptions or Reported Meds Condition: Amrita Jones MD March 20, 2017 07:15
[2017-03-20 07:24] LABS: CKMB 5.5 NG/ML (0.5-3.6)
[2017-03-20 08:10] LABS: ACETAMINOPHEN LESS THAN 2.0 MCG/ML (10.0-30.0)
--- NOTE | 2017-03-20 08:39 | RADRPT ---
EXAM DATE/TIME: 03/20/2017 08:24 [facility] COMPARISON: No previous studies available for comparison. INDICATIONS : Syncope MEDICAL HISTORY : None. SURGICAL HISTORY : None. ENCOUNTER: Initial ACUITY: 1 day PAIN SCORE: Non-responsive. LOCATION: chest FINDINGS: A single view of the chest demonstrates left lower lobe infiltrate. Right lung clear. Heart normal in size.. Osseous structures are intact. CONCLUSION: 1. Left lower lobe infiltrate. Tushar De La Torre MD on March 20, 2017 at 8:36 Board Certified Radiologist. This report was verified electronically.
--- NOTE | 2017-03-20 08:39 | RADRPT ---
EXAM DATE/TIME: 03/20/2017 06:57 [facility] COMPARISON: No previous studies available for comparison. INDICATIONS : Altered mental status. RADIATION DOSE: 56.35 CTDIvol (mGy) MEDICAL HISTORY : Substance abuse. SURGICAL HISTORY : None. ENCOUNTER: Initial ACUITY: 1 day PAIN SCALE: 0/10 LOCATION: cranial TECHNIQUE: Multiple contiguous axial images were obtained of the head. Using automated exposure control and adj ustment of the mA and/or kV according to patient size, radiation dose was kept as low as reasonably a chievable to obtain optimal diagnostic quality images. FINDINGS: CEREBRUM: The ventricles are normal for age. No evidence of midline shift, mass lesion, hemorrhage or acute in farction. No extra-axial fluid collections are seen. POSTERIOR FOSSA: The cerebellum and brainstem are intact. The 4th ventricle is midline. The cerebellopontine angle i s unremarkable. EXTRACRANIAL: The visualized portion of the orbits is intact. SKULL: The calvaria is intact. No evidence of skull fracture. CONCLUSION: Normal examination. Tushar De La Torre MD on March 20, 2017 at 8:37 Board Certified Radiologist. This report was verified electronically.
[2017-03-20 09:02] LABS: LACTIC ACID GHOST NOT REPORTABLE
[2017-03-20] MEDS ORDERED: LORazepam 2 MG/ML VIAL IV PUSH PRN ×4 (09:15)
[2017-03-20] MEDS ORDERED: LORazepam 2 MG TAB PO PRN (09:15)
[2017-03-20] MEDS ORDERED: LORazepam 1 MG TAB PO PRN (09:15)
[2017-03-20] MEDS ORDERED: FLUMAZENIL 0.5 MG/5 ML VIAL IV PUSH PRN (09:15)
[2017-03-20] MEDS ORDERED: SODIUM CHLORIDE 0.9% FLUSH 10 ML FLUSH IV FLUSH PRN (09:15)
[2017-03-20] MEDS ORDERED: ONDANSETRON HCL 4 MG/2 ML VIAL IV PRN (09:15)
[2017-03-20] MEDS ORDERED: HALOPERIDOL LACTATE 5 MG/ML AMP IM PRN (09:15)
--- NOTE | 2017-03-20 09:18 | HHI.HP ---
HPI Service Family Medicine Primary Care Physician Unknown Admission Diagnosis sepsis, pneumonia, rhabdomyolisis, drug-induced psychosis Diagnoses: International Travel<30 Days: No Contact w/Intl Traveler<30days: No Known Affected Area: No History of Present Illness At the time of examination, the pt was deeply asleep having been heavily sedated with Ativan due to agitation. Below is the HPI from the ED physician's note: '47-year-old female presents to the emergency department restrained by police and police custody with acute altered mental status agitation and fighting and acute psychosis. Patient was found running through the streets and into traffic by the police partially clothed. Patient had to be tackled to the ground to be restrained by the police who report she did sustain some abrasions to her chest wall and abdomen and trunk while fighting off the police and also ran directly into a wall while trying to escape the police; subsequently successfully apprehended and brought to the hospital. Patient mentioned intermittently through her confused and altered state possible ingestion of flocka, cocaine, and alcohol. Patient repeatedly states that she is being stabbed and that someone has taken her baby and that she is being poisoned. Additional information is unable to be obtained and not available." Review of Systems ROS Limitations: Intoxication, Altered Mental Status, Uncooperative, Combative Other ROS unable to obtain due to pt being sedated Past Family Social History Past Medical History Polysubstance abuse Heart murmur Past Surgical History Unknown surgical history Reported Medications Reported Meds & Active Scripts Active Active Prescriptions or Reported Medications Unobtainable Allergies: Coded Allergies: No Known Allergies (Verified , 03/20/17) Family History Unable to assess Social History Alcohol Use: Yes Tobacco Use: Yes Substance Use: Yes (1 PPD cigarettes, Flakka, Etoh occasionally, Crack weekly) Physical Exam Vital Signs Vital Signs Date Time Temp Pulse Resp B/P Pulse Ox O2 Delivery O2 Flow Rate FiO2 03/20/17 07:13 113 25 100/55 94 Nasal Cannula 2 03/20/17 06:54 134 03/20/17 06:31 150 24 03/20/17 06:27 98 Room Air 03/20/17 06:14 100.6 150 24 115/69 99 Physical Exam GENERAL: This is a well-developed patient, lying in bed in deep sleep from sedation. Exam limited by inability to wake pt up SKIN: 5cm abrasion under chin, at least 3 abrasions 0.5cm lateral to her right eye, multiple abrasions on her right arm and hand, multiple IV track padgett on both hands and arms, currently in violent restraints HEAD: Atraumatic. Normocephalic. No temporal or scalp tenderness. EYES: Pupils equal round and reactive. ENT: Nose without bleeding, purulent drainage or septal hematoma. Airway patent. NECK: Trachea midline. No JVD or lymphadenopathy. Supple, nontender, no meningeal signs. CARDIOVASCULAR: Regular rate and rhythm without murmurs, gallops, or rubs. RESPIRATORY: Clear to auscultation. Breath sounds equal bilaterally. No wheezes , rales, or rhonchi. GASTROINTESTINAL: Abdomen soft, non-tender, nondistended. No guarding. MUSCULOSKELETAL: Extremities without clubbing, cyanosis, or edema. No joint tenderness, effusion, or edema noted. No calf tenderness. NEUROLOGICAL: Sedated. Motor and sensory grossly within normal limits. Laboratory Laboratory Tests Test 03/20/17 03/20/17 03/20/17 06:20 06:25 06:50 White Blood Count 20.3 Red Blood Count 4.30 Hemoglobin 13.0 Hematocrit 39.5 Mean Corpuscular Volume 91.8 Mean Corpuscular Hemoglobin 30.3 Mean Corpuscular Hemoglobin 33.0 Concent Red Cell Distribution Width 13.7 Platelet Count 519 Mean Platelet Volume 7.9 Neutrophils (%) (Auto) 90.6 Lymphocytes (%) (Auto) 5.9 Monocytes (%) (Auto) 3.4 Eosinophils (%) (Auto) 0.0 Basophils (%) (Auto) 0.1 Neutrophils # (Auto) 18.4 Lymphocytes # (Auto) 1.2 Monocytes # (Auto) 0.7 Eosinophils # (Auto) 0.0 Basophils # (Auto) 0.0 CBC Comment DIFF FINAL Differential Comment Prothrombin Time 11.6 Prothromb Time International 1.0 Ratio Activated Partial 29.1 Thromboplast Time Sodium Level 135 Potassium Level 4.0 Chloride Level 101 Carbon Dioxide Level 16.4 Anion Gap 18 Blood Urea Nitrogen 26 Creatinine 1.56 Estimat Glomerular Filtration 36 Rate Random Glucose 236 Calcium Level 8.9 Magnesium Level 2.1 Total Bilirubin 0.5 Aspartate Amino Transf 51 (AST/SGOT) Alanine Aminotransferase 29 (ALT/SGPT) Alkaline Phosphatase 130 Total Creatine Kinase 1000 Creatine Kinase MB 5.5 Creatine Kinase MB % 0.6 Troponin I LESS THAN 0.02 Total Protein 7.8 Albumin 2.6 Thyroid Stimulating Hormone 2.100 3rd Gen Salicylates Level 3.2 Acetaminophen Level LESS THAN 2.0 Ethyl Alcohol Level LESS THAN 3 Urine Color YELLOW Urine Turbidity HAZY Urine pH 5.5 Urine Specific Forgan 1.030 Urine Protein 30 Urine Glucose (UA) NEG Urine Ketones NEG Urine Occult Blood MOD Urine Nitrite NEG Urine Bilirubin NEG Urine Urobilinogen 2.0 Urine Leukocyte Esterase NEG Urine RBC Urine WBC 5 Urine Amorphous Sediment RARE Urine Bacteria FEW Urine Hyaline Casts 14 Urine Mucus FEW Microscopic Urinalysis Comment CATH-CULTURE IND Urine Opiates Screen NEG Urine Barbiturates Screen NEG Urine Amphetamines Screen NEG Urine Benzodiazepines Screen NEG Urine Cocaine Screen POS Urine Cannabinoids Screen POS Lactic Acid Level 4.3 Date/Time Procedure Status Source Growth 03/20/17 06:30 Aerobic Blood Culture Received Blood Peripheral Pending 03/20/17 06:30 Anaerobic Blood Culture Received Blood Peripheral Pending 03/20/17 06:25 Urine Culture Received Urine Catheterized Urine Pending Result Diagram: 03/20/1761903/20/17619 Imaging Last Impressions Head CT 03/20/17616 Signed Impressions: Service Date/Time: Monday, March 20, 2017 06:57 - CONCLUSION: Normal examination. Tushar De La Torre MD Chest X-Ray 03/20/17616 Signed Impressions: Service Date/Time: Monday, March 20, 2017 08:24 - CONCLUSION: 1. Left lower lobe infiltrate. Tushar De La Torre MD Assessment and Plan Assessment and Plan 47-year-old female with past medical history of IV drug use and substance abuse presents after an episode of acute psychosis suspected to be from cocaine and Flakka use. Patient presents with physical signs concerning for sepsis with the left lower lobe infiltrate as a possible source. Lactic acid is elevated at 4.3. Patient also has rhabdomyolysis with creatinine kinase elevated at 1000. She will be admitted for treatment with IV fluids and antibiotics. The plan is to medically stabilize her before transfer for mental/psychiatric care. Code Status Full code Discussed Condition With Seen and examined with Dr. Dillon, PGY 2 Problem List: (1) Severe sepsis Status: Acute Plan: -Patient's febrile to 100.6F, pulse 150, respirations 24, O2 saturation 99% on room air on admission, currently pulse of 88 and 95% O2 saturation on 2 L by NC -Initial blood pressure was 115/69 and dropped to 99/58 at 8 AM on 03/20 -Lactic acid was elevated at 4.3 on admission -White blood cells elevated at 20.3 with 90.6% neutrophils -Probable source of sepsis is left lower lobe infiltrate. Urinary tract infection is also in the differential with UA showing moderate occult blood few bacteria on catheterized specimen -Blood cultures pending -Urine culture pending -On lactic acid protocol -Sputum Gram stain and culture pending -Patient received 3 1L normal saline boluses in the ED -She was started on Vanco and cefepime -Will continue with Rocephin 1 g IV once daily and azithromycin 500 mg IV once daily -Solu-Medrol 40 mg IV every 12 hours -DuoNeb nebulizer 1 ampule every 6 hours -Respiratory incentive spirometer -Continue normal saline at 150 mls/hr -Zofran 4 mg IV when necessary nausea/vomiting (2) Substance-induced psychotic disorder with delusions Status: Acute Plan: -UDS positive for cocaine and cannabinoids. Will order more extensive urine drug screen -EKG shows sinus tachycardia rate 134, repeat him a regular, incomplete right bundle-branch block pattern QRS 98 ms QT 343 with QTC of 422 ms -Currently sedated with Ativan due to agitation -Will monitor patient closely for withdrawal symptoms -Violent restraints -Cardiac telemetry with continuous vital signs -Continuous pulse oximetry with supplemental oxygen as needed -Fall precautions -CIWA protocol on board due to history of alcohol use although patient's UDS screen for alcohol was negative -Haldol 2 mg IM every 15 minutes when necessary for psychosis/agitation (3) Rhabdomyolysis Status: Acute Plan: -CPK elevated at 1000 -Patient has received 3 normal saline boluses in the ED -We'll continue normal saline at 150 mL per hour (4) FEN/DVT PPX/GI PPX/Standard Orders Status: Acute Plan: Fluids: NS @ 175 mls/hr IV Electrolytes: Will monitor and replace as needed Nutrition: NPO due to AMS, otherwise regular adult diet DVT Prophylaxis: Heparin subcutaneous Q8h GI Prophylaxis: Protonix 40mg PO IV daily while on steroids Activity bed rest Monitor I's and O's Physician Certification 2 Midnight Certification Type: Admission for Inpatient Services Order for Inpatient Services The services are ordered in accordance with Medicare regulations or non- Medicare payer requirements, as applicable. In the case of services not specified as inpatient-only, they are appropriately provided as inpatient services in accordance with the 2-midnight benchmark. Estimated LOS (days): 3 days is the estimated time the patient will need to remain in the hospital, assuming treatment plan goals are met and no additional complications. Post-Hospital Plan: Not yet determined Problem Qualifiers (1) Rhabdomyolysis: Qualified Code: M62.82 - Non-traumatic rhabdomyolysis Celia Casper MD R1 March 20, 2017 09:18
[2017-03-20] MEDS: RESP: ALBUTEROL 2.5 MG/IPRATROPIUM 0.5 MG NEB (SCH) INH ×3 (09:51→21:21)
[2017-03-20] MEDS: SODIUM CHLOR 0.9% 1000 ML INJ 1,000 ML IV SCH ×3 (10:44→19:41)
[2017-03-20] MEDS: HEPARIN SODIUM - SQ 10,000 UNITS/ML VIAL SQ SCH ×2 (10:45→17:43)
[2017-03-20] MEDS: cefTRIAXone INJ 1,000 MG in SODIUM CHLORIDE 0.9% INJ 100 ML IV SCH (10:45)
[2017-03-20] MEDS: PANTOPRAZOLE SODIUM 40 MG VIAL IV PUSH SCH (10:47)
[2017-03-20] MEDS: methylPREDNISolone SOD SUCC 40 MG/1 ML VIAL IV SCH ×2 (10:47→19:41)
[2017-03-20 10:50] LABS: AMPHETAMINE, URINE NEG (NEG); BARBITURATES, URINE NEG (NEG)
[2017-03-20 10:51] LABS: COCAINE, URINE POS (NEG)
[2017-03-20] MEDS: AZITHROMYCIN INJ 500 MG in SODIUM CHLOR 0.9% 250 ML INJ 250 ML IV SCH (12:08)
--- NOTE | 2017-03-20 16:32 | EKG ---
Date Performed: 03/20/2017 Time Performed: 06:33:41 PTAGE: 47 years EKG: Sinus tachycardia with premature atrial contractions. INCOMPLETE RIGHT BUNDLE BRANCH BLOCK POSSIBLE INFERIOR MYOCARDIAL INFARCTION Possible left ventricular hypertrophy. Nonspecific ST-T wave changes. ABNORMAL RHYTHM ECG NO PREVIOUS TRACING DOCTOR: Rosalba Ceballos Interpretating Date/Time 03/20/2017 16:31:31
[2017-03-20] MEDS: SODIUM CHLORIDE 0.9% FLUSH 10 ML FLUSH IV FLUSH SCH (19:41)
[2017-03-20] MEDS: LORazepam 2 MG/ML VIAL IV PUSH PRN ×2 (19:42→21:53)
[2017-03-20 19:54] LABS: BICARBONATE 22.7 MEQ/L (21.0-32.0); POTASSIUM 3.7 MEQ/L (3.5-5.1)
[2017-03-20 20:26] LABS: CKMB 7.5 NG/ML (0.5-3.6)
[2017-03-21] MEDS: HEPARIN SODIUM - SQ 10,000 UNITS/ML VIAL SQ SCH ×3 (01:30→17:32)
[2017-03-21] MEDS: SODIUM CHLOR 0.9% 1000 ML INJ 1,000 ML IV SCH ×3 (02:50→21:37)
[2017-03-21] MEDS: RESP: ALBUTEROL 2.5 MG/IPRATROPIUM 0.5 MG NEB (SCH) INH ×3 (03:30→16:00)
[2017-03-21 04:00] VITALS: BP 108/67; PULSE 63; RESP 20; TEMP 96; O2SAT 98
[2017-03-21 08:00] VITALS: BP 108/62; PULSE 67; RESP 17; TEMP 96.3; O2SAT 95
[2017-03-21] MEDS: LORazepam 2 MG/ML VIAL IV PUSH PRN (08:15)
[2017-03-21] MEDS: SODIUM CHLORIDE 0.9% FLUSH 10 ML FLUSH IV FLUSH SCH ×2 (08:18→21:00)
[2017-03-21] MEDS: methylPREDNISolone SOD SUCC 40 MG/1 ML VIAL IV SCH ×2 (08:18→21:37)
[2017-03-21] MEDS: AZITHROMYCIN INJ 500 MG in SODIUM CHLOR 0.9% 250 ML INJ 250 ML IV SCH (08:31)
[2017-03-21 10:09] VITALS: O2SAT 96
[2017-03-21] MEDS: cefTRIAXone INJ 1,000 MG in SODIUM CHLORIDE 0.9% INJ 100 ML IV SCH (10:22)
[2017-03-21] MEDS: PANTOPRAZOLE SODIUM 40 MG VIAL IV PUSH SCH (10:22)
[2017-03-21 10:38] LABS: AUTOMATED NEUTROPHIL # 9.9 TH/MM3 (1.8-7.7); BASOPHIL % 0.1 % (0.0-2.0); EOSINOPHIL % 0.1 % (0.0-4.0); HEMATOCRIT 32.6 % (35.0-46.0); HEMO FLAGS DIFF FINAL; LYMPH % 7.4 % (9.0-44.0); LYMPHOCYTE # 0.8 TH/MM3 (1.0-4.8); MEAN CELL VOLUME 91.6 FL (80.0-100.0); MEAN CORPUSCULAR HEMOGLOBIN 30.3 PG (27.0-34.0); MEAN CORPUSCULAR HGB CONC 33.1 % (32.0-36.0); MONO % 3.7 % (0.0-8.0); NEUT % 88.7 % (16.0-70.0); PLATELET COUNT 365 TH/MM3 (150-450); RED BLOOD COUNT 3.56 MIL/MM3 (4.00-5.30); RED CELL DISTRIBUTION WIDTH 13.9 % (11.6-17.2); WHITE BLOOD COUNT 11.1 TH/MM3 (4.0-11.0)
[2017-03-21 10:56] LABS: BICARBONATE 19.9 MEQ/L (21.0-32.0); POTASSIUM 3.9 MEQ/L (3.5-5.1)
--- NOTE | 2017-03-21 11:14 | HHI.FPPN ---
Subjective Remarks Pt was sleeping but easily awakened. Patient stated that she was very hungry and wanted two meals. She stated that she could remember exactly what happened yesterday but did not want to talk about because of legal concerns. She wanted to know if rat poison was one of the substances that was found in her drug analysis. She mentioned that she gave her baby up for adoption but she has a 3 year old baby that she was concerned about. She lives at home with her mom, dad , and brother. (Celia Casper MD R1) Objective Vitals Vital Signs Date Time Temp Pulse Resp B/P Pulse Ox O2 Delivery O2 Flow Rate FiO2 03/21/17 10:09 96 21 03/21/17 08:00 96.3 67 17 108/62 95 03/21/17 04:00 96.0 63 20 108/67 98 03/20/17 20:00 96.5 98 22 108/65 95 03/20/17 16:40 Nasal Cannula 2.00 03/20/17 16:00 97.0 71 18 113/61 100 03/20/17 13:11 96.5 76 17 105/58 99 03/20/17 12:00 78 18 89/58 98 Nasal Cannula 2 I/O 03/20/17 03/20/17 03/20/17 03/21/17 03/21/17 03/21/17 07:00 15:00 23:00 07:00 15:00 23:00 Intake Total 158 ml 910 ml 980 ml Output Total 350 ml 275 ml 300 ml Balance -192 ml 635 ml 680 ml Intake Oral 0 ml 0 ml IV Total 158 ml 910 ml 980 ml Output Urine Total 350 ml 275 ml 300 ml # Bowel Movements 0 0 (Celia Casper MD R1) Result Diagram: 03/21/17 1019 03/21/17 1019 Imaging Last [address] 03/20/17616 Signed Impressions: Service Date/Time: Monday, March 20, 2017 06:57 - CONCLUSION: Normal examination. Tushar De La Torre MD Chest X-Ray 03/20/17616 Signed Impressions: Service Date/Time: Monday, March 20, 2017 08:24 - CONCLUSION: 1. Left lower lobe infiltrate. Tushar De La Torre MD Objective Remarks GENERAL: This is a well-developed patient, lying in bed, awake SKIN: 5cm healing abrasion under chin, at least 3 abrasions 0.5cm lateral to her right eye, multiple abrasions on her right arm and hand, multiple IV track padgett on both hands and arms, currently in violent restraints HEAD: Atraumatic. Normocephalic. No temporal or scalp tenderness. EYES: Pupils equal round and reactive. ENT: Nose without bleeding, purulent drainage or septal hematoma. Airway patent. NECK: Trachea midline. No JVD or lymphadenopathy. Supple, nontender, no meningeal signs. CARDIOVASCULAR: Regular rate and rhythm without murmurs, gallops, or rubs. RESPIRATORY: Clear to auscultation. Breath sounds equal bilaterally. No wheezes , rales, or rhonchi. GASTROINTESTINAL: Abdomen soft, non-tender, nondistended. No guarding. MUSCULOSKELETAL: Extremities without clubbing, cyanosis, or edema. No joint tenderness, effusion, or edema noted. No calf tenderness. NEUROLOGICAL: Sedated. Motor and sensory grossly within normal limits. (Celia Casper MD R1) A/P Assessment and Plan 47-year-old female with past medical history of IV drug use and substance abuse presents after an episode of acute psychosis suspected to be from cocaine and Flakka use. Patient presents with physical signs concerning for sepsis with the left lower lobe infiltrate as a possible source. Lactic acid was elevated at 4.3 on admission but has trended down to WNL. Patient also has rhabdomyolysis with creatinine kinase elevated at 1000. She was admitted for treatment with IV fluids and antibiotics. The plan is to medically stabilize her before transfer for mental/psychiatric care. Seen and examined with Dr. Woods and Dr. Dodd Discharge Planning Pending resolution of rhabdomyolysis, pending psychiatric consult (Celia Casper MD R1) Attending Attestation Patient seen and examined. Case reviewed and discussed with the resident team. Agree with plan of care as discussed with me and documented in the resident note (Eren Woods MD) Problem List: (1) Severe sepsis Status: Acute Plan: -Patient's febrile to 100.6F, pulse 150, respirations 24, O2 saturation 99% on room air on admission, currently within normal limits, patient saturating 96% on room air -Lactic acid within normal limits -WBC dropped to 11.1 from 20.3 -Probable source of sepsis is left lower lobe infiltrate. Urinary tract infection is also in the differential with UA showing moderate occult blood few bacteria on catheterized specimen -Blood culture shows gram-positive cocci on preliminary reports -Urine culture shows no growth in 24 hours -Sputum Gram stain and culture pending -Patient on Rocephin 1 g IV once daily and azithromycin 500 mg IV once daily -Solu-Medrol 40 mg IV every 12 hours -DuoNeb nebulizer 1 ampule every 6 hours -Respiratory incentive spirometer -Continue normal saline at 100 mls/hr -Zofran 4 mg IV when necessary nausea/vomiting (2) Substance-induced psychotic disorder with delusions Status: Acute Plan: -UDS positive for cocaine and cannabinoids. Will order more extensive urine drug screen -EKG shows sinus tachycardia rate 134, incomplete right bundle-branch block pattern QRS 98 ms QT 343 with QTC of 422 ms -Currently sedated with Ativan due to agitation -Will monitor patient closely for withdrawal symptoms -Discontinue violent restraints -Cardiac telemetry with continuous vital signs -Continuous pulse oximetry with supplemental oxygen as needed -Fall precautions -CIWA protocol on board due to history of alcohol use although patient's UDS screen for alcohol was negative (3) Rhabdomyolysis Status: Acute Plan: -CPK elevated at 1290 today -We'll continue normal saline at 150 mL per hour (4) FEN/DVT PPX/GI PPX/Standard Orders Status: Acute Plan: Fluids: NS @ 150 mls/hr IV Electrolytes: Will monitor and replace as needed Nutrition: Regular adult diet DVT Prophylaxis: Heparin subcutaneous Q8h GI Prophylaxis: Protonix 40mg PO IV daily while on steroids Activity bed rest Monitor I's and O's (Celia Casper MD R1) Problem Qualifiers (1) Rhabdomyolysis: Qualified Code: M62.82 - Non-traumatic rhabdomyolysis Celia Casper MD R1 March 21, 2017 11:14 Eren Woods MD March 22, 2017 09:17
[2017-03-21 12:00] VITALS: BP 100/52; PULSE 83; RESP 16; TEMP 97; O2SAT 94
[2017-03-21 16:00] VITALS: BP 121/64; PULSE 93; RESP 18; TEMP 96.4; O2SAT 99
[2017-03-21] MEDS ORDERED: ACETAMINOPHEN/HYDROcodone 325 MG/5 MG TAB PO PRN (18:00)
[2017-03-21] MEDS ORDERED: TAMSULOSIN HCL 0.4 MG CAP PO ONE (18:00)
[2017-03-21] MEDS ORDERED: SODIUM CHLOR 0.9% 1000 ML INJ 1,000 ML IV ONE (18:00)
[2017-03-21] MEDS ORDERED: MORPHINE SULFATE 4 MG/ML INJ IV PRN (18:00)
[2017-03-21] MEDS: ACETAMINOPHEN/HYDROcodone 325 MG/10 MG TAB PO PRN (18:19)
[2017-03-21 20:00] VITALS: BP 100/59; PULSE 67; RESP 20; TEMP 97.6; O2SAT 96
[2017-03-22] VITALS: BP 121/72; PULSE 66; RESP 18; TEMP 97.7; O2SAT 95
[2017-03-22] MEDS: HEPARIN SODIUM - SQ 10,000 UNITS/ML VIAL SQ SCH ×3 (02:31→17:16)
[2017-03-22] MEDS: SODIUM CHLOR 0.9% 1000 ML INJ 1,000 ML IV SCH ×3 (02:31→17:17)
[2017-03-22] MEDS: RESP: ALBUTEROL 2.5 MG/IPRATROPIUM 0.5 MG NEB (SCH) INH ×4 (04:00→20:49)
[2017-03-22 05:40] LABS: AUTOMATED NEUTROPHIL # 8.4 TH/MM3 (1.8-7.7); BASOPHIL % 0.2 % (0.0-2.0); HEMATOCRIT 31.4 % (35.0-46.0); HEMO FLAGS DIFF FINAL; LYMPH % 8.7 % (9.0-44.0); LYMPHOCYTE # 0.8 TH/MM3 (1.0-4.8); MEAN CELL VOLUME 91.2 FL (80.0-100.0); MEAN CORPUSCULAR HEMOGLOBIN 30.6 PG (27.0-34.0); MEAN CORPUSCULAR HGB CONC 33.5 % (32.0-36.0); MONO % 2.6 % (0.0-8.0); NEUT % 88.5 % (16.0-70.0); PLATELET COUNT 371 TH/MM3 (150-450); RED BLOOD COUNT 3.45 MIL/MM3 (4.00-5.30); RED CELL DISTRIBUTION WIDTH 13.8 % (11.6-17.2); WHITE BLOOD COUNT 9.5 TH/MM3 (4.0-11.0)
[2017-03-22 06:06] LABS: POTASSIUM 4.4 MEQ/L (3.5-5.1)
[2017-03-22 08:00] VITALS: BP 115/71; PULSE 55; RESP 16; TEMP 96.4; O2SAT 96
[2017-03-22] MEDS: methylPREDNISolone SOD SUCC 40 MG/1 ML VIAL IV SCH (09:17)
[2017-03-22] MEDS: AZITHROMYCIN INJ 500 MG in SODIUM CHLOR 0.9% 250 ML INJ 250 ML IV SCH (09:18)
[2017-03-22] MEDS: SODIUM CHLORIDE 0.9% FLUSH 10 ML FLUSH IV FLUSH SCH ×2 (09:18→21:00)
--- NOTE | 2017-03-22 09:27 | HHI.FPPN ---
Subjective Remarks Ms Whitman was sleeping on the couch in her room at the time of exam, because her IV came out this morning and her bedsheets needed to be changed. Overnight nurse said that she was not combative and slept through most of the night. Haldol and restraints were removed. She denied chest pain, shortness of breath, abdominal pain, or dysuria. She still has nausea but denies vomiting. Objective Vitals Vital Signs Date Time Temp Pulse Resp B/P Pulse Ox O2 Delivery O2 Flow Rate FiO2 03/22/17 08:00 96.4 55 16 115/71 96 03/22/17 00:00 97.7 66 18 121/72 95 03/21/17 20:00 97.6 67 20 100/59 96 03/21/17 16:00 96.4 93 18 121/64 99 03/21/17 12:00 97.0 83 16 100/52 94 03/21/17 10:09 96 21 I/O 03/21/17 03/21/17 03/21/17 03/22/17 03/22/17 03/22/17 07:00 15:00 23:00 07:00 15:00 23:00 Intake Total 980 ml 2033 ml 990 ml 959 ml 120 ml Output Total 300 ml 0 ml 300 ml 0 ml Balance 680 ml 2033 ml 690 ml 959 ml 120 ml Intake Oral 0 ml 960 ml 240 ml 120 ml IV Total 980 ml 1073 ml 750 ml 959 ml Output Urine Total 300 ml 0 ml 300 ml 0 ml Bladder Scan Volume Amount 298 ml # Bowel Movements 0 0 1 0 Result Diagram: 03/22/17 0507 03/22/17 0507 Objective Remarks GENERAL: This is a well-developed patient, lying on a couch, sleepy but arousable SKIN: 5cm healing abrasion under chin, at least 3 abrasions 0.5cm lateral to her right eye, multiple abrasions on her right arm and hand, multiple IV track padgett on both hands and arms HEAD: Atraumatic. Normocephalic. No temporal or scalp tenderness. EYES: Pupils equal round and reactive. ENT: Nose without bleeding, purulent drainage or septal hematoma. Airway patent. NECK: Trachea midline. No JVD or lymphadenopathy. Supple, nontender, no meningeal signs. CARDIOVASCULAR: Irregular rate and rhythm without murmurs, gallops, or rubs. RESPIRATORY: Clear to auscultation. Breath sounds equal bilaterally. No wheezes , rales, or rhonchi. GASTROINTESTINAL: Abdomen soft, non-tender, nondistended. No guarding. MUSCULOSKELETAL: Extremities without clubbing, cyanosis, or edema. No joint tenderness, effusion, or edema noted. No calf tenderness. NEUROLOGICAL: Motor and sensory grossly within normal limits. A/P Assessment and Plan 47-year-old female with past medical history of IV drug use and substance abuse presented to the [place] ED after an episode of acute psychosis suspected to be from cocaine and Flakka use. Patient presented with physical signs concerning for sepsis with the left lower lobe infiltrate as a possible source. Lactic acid was elevated at 4.3 on admission but has trended down to WNL. Patient was also diagnosed with rhabdomyolysis secondary to creatinine kinase elevated at 1000. She was admitted for treatment with IV fluids and IV antibiotics. The plan is to medically stabilize her before transfer for mental/psychiatric care. Discussed with Dr. Dillon, PGY 2 Discharge Planning Pending resolution of rhabdomyolysis, pending psychiatric recommendations Problem List: (1) Severe sepsis Status: Acute Plan: -Patient febrile to 100.6F, pulse 150, respirations 24, O2 saturation 99 % on room air on admission, currently within normal limits, patient saturating 100% on room air -Lactic acid within normal limits -WBC WNL at 9.5 -Probable source of sepsis is left lower lobe infiltrate. Urinary tract infection is also in the differential with UA showing moderate occult blood few bacteria on catheterized specimen -Blood culture shows staph coagulase-negative in 1 aerobic vial on preliminary report - waiting on micro-lab to determine if this organism is a contaminant or not -Urine culture shows no growth in 48 hours -Patient on Rocephin 1 g IV once daily and azithromycin 500 mg IV once daily -Solu-Medrol 40 mg IV once daily -DuoNeb nebulizer 1 ampule every 6 hours -Respiratory incentive spirometer -Continue normal saline at 100 mls/hr -Zofran 4 mg IV when necessary nausea/vomiting (2) Substance-induced psychotic disorder with delusions Status: Acute Plan: -UDS positive for cocaine and cannabinoids. Pending more extensive urine drug screen -EKG on admission showed sinus tachycardia rate 134, incomplete right bundle- branch block pattern QRS 98 ms QT 343 with QTC of 422 ms -Will monitor patient closely for withdrawal symptoms -Violent restraints discontinued -Cardiac telemetry with continuous vital signs -Continuous pulse oximetry with supplemental oxygen as needed -Fall precautions -Discontinue CIWA protocol (3) Rhabdomyolysis Status: Acute Plan: -CK down trended to 806 today -Will continue normal saline at 100 mL per hour (4) FEN/DVT PPX/GI PPX/Standard Orders Status: Acute Plan: Fluids: NS @ 100 mls/hr IV Electrolytes: Will monitor and replace as needed Nutrition: Regular adult diet DVT Prophylaxis: Heparin subcutaneous Q8h GI Prophylaxis: Protonix 40mg PO IV daily while on steroids Activity bed rest Monitor I's and O's Problem Qualifiers (1) Rhabdomyolysis: Qualified Code: M62.82 - Non-traumatic rhabdomyolysis Celia Caspre MD R1 March 22, 2017 09:27
[2017-03-22 12:00] VITALS: BP 107/63; PULSE 77; RESP 17; TEMP 96.3; O2SAT 94
[2017-03-22] MEDS: PANTOPRAZOLE SODIUM 40 MG VIAL IV PUSH SCH (12:24)
[2017-03-22] MEDS: cefTRIAXone INJ 1,000 MG in SODIUM CHLORIDE 0.9% INJ 100 ML IV SCH (12:24)
[2017-03-22 20:00] VITALS: BP 116/58; PULSE 62; RESP 17; TEMP 97; O2SAT 95
[2017-03-22] MEDS: ACETAMINOPHEN 325 MG TAB PO PRN (23:22)
[2017-03-23] VITALS: BP 117/68; PULSE 74; RESP 19; TEMP 96.2; O2SAT 96
[2017-03-23] MEDS: HEPARIN SODIUM - SQ 10,000 UNITS/ML VIAL SQ SCH ×2 (02:31→07:47)
[2017-03-23] MEDS: SODIUM CHLOR 0.9% 1000 ML INJ 1,000 ML IV SCH ×2 (04:01→14:23)
[2017-03-23] MEDS: ACETAMINOPHEN 325 MG TAB PO PRN (04:01)
[2017-03-23] MEDS: RESP: ALBUTEROL 2.5 MG/IPRATROPIUM 0.5 MG NEB (SCH) INH ×3 (04:39→15:51)
[2017-03-23 07:02] LABS: BICARBONATE 22.3 MEQ/L (21.0-32.0); POTASSIUM 3.3 MEQ/L (3.5-5.1)
[2017-03-23 07:36] LABS: CKMB 3.2 NG/ML (0.5-3.6)
[2017-03-23] MEDS: AZITHROMYCIN INJ 500 MG in SODIUM CHLOR 0.9% 250 ML INJ 250 ML IV SCH (07:46)
[2017-03-23] MEDS: methylPREDNISolone SOD SUCC 40 MG/1 ML VIAL IV SCH (07:47)
[2017-03-23] MEDS: SODIUM CHLORIDE 0.9% FLUSH 10 ML FLUSH IV FLUSH SCH (07:47)
[2017-03-23 08:00] VITALS: BP 125/65; PULSE 62; RESP 16; TEMP 96.6; O2SAT 96
[2017-03-23] MEDS: ACETAMINOPHEN/HYDROcodone 325 MG/10 MG TAB PO PRN (08:03)
--- NOTE | 2017-03-23 08:24 | HHI.FPPN ---
Subjective Remarks Patient seen and examined this morning. Afebrile vital signs stable. She reports that she is breathing fine, being able to get up and walk around, and has been using the bathroom without difficulty. She feels that she is back to her baseline. Her only complaint is some mild back pain where her kidneys are located. Explained her that she has rhabdomyolysis could be the cause of her pain, and that it will slowly improve with time and fluids. Endorses: Mild back pain Denies: Fever, chills, nausea, vomiting, shortness of breath, chest pain, headache, abdominal pain, calf pain Objective Vitals Vital Signs Date Time Temp Pulse Resp B/P Pulse Ox O2 Delivery O2 Flow Rate FiO2 03/23/17 00:00 96.2 74 19 117/68 96 03/22/17 20:00 97.0 62 17 116/58 95 03/22/17 12:00 96.3 77 17 107/63 94 I/O 03/22/17 03/22/17 03/22/17 03/23/17 03/23/17 03/23/17 07:00 15:00 23:00 07:00 15:00 23:00 Intake Total 959 ml 1376 ml 927 ml 1011 ml Output Total 0 ml Balance 959 ml 1376 ml 927 ml 1011 ml Intake Oral 600 ml 480 ml 240 ml IV Total 959 ml 776 ml 447 ml 771 ml Output Urine Total 0 ml # Voids 2 2 2 # Bowel Movements 0 1 Result Diagram: 03/22/17 0507 03/23/17 0609 Imaging Last Impressions Head CT 03/20/17616 Signed Impressions: Service Date/Time: Monday, March 20, 2017 06:57 - CONCLUSION: Normal examination. Tushar De La Torre MD Chest X-Ray 03/20/17616 Signed Impressions: Service Date/Time: Monday, March 20, 2017 08:24 - CONCLUSION: 1. Left lower lobe infiltrate. Tushar De La Torre MD Objective Remarks GENERAL: This is a well-developed patient, lying in bed, awake and alert SKIN: 5cm healing abrasion under chin, at least 3 abrasions 0.5cm lateral to her right eye, multiple abrasions on her right arm and hand, multiple IV track padgett on both hands and arms HEAD: Atraumatic. Normocephalic. No temporal or scalp tenderness. EYES: Pupils equal round and reactive. ENT: Nose without bleeding, purulent drainage or septal hematoma. Airway patent. NECK: Trachea midline. No JVD or lymphadenopathy. Supple, nontender, no meningeal signs. CARDIOVASCULAR: Irregular rate and rhythm without murmurs, gallops, or rubs. RESPIRATORY: Clear to auscultation. Breath sounds equal bilaterally. No wheezes , rales, or rhonchi. GASTROINTESTINAL: Abdomen soft, non-tender, nondistended. No guarding. MUSCULOSKELETAL: Extremities without clubbing, cyanosis, or edema. No joint tenderness, effusion, or edema noted. No calf tenderness. Mild tenderness to palpation of back NEUROLOGICAL: Motor and sensory grossly within normal limits. Medications and IVs Current Medications Medications (Trade) Dose Ordered Sig/Goldie Route Start Time Stop Time Status Last Admin (NS 1000 ml Inj) 1,000 ml @ 100 mls/hr Q10H IV 03/20/17 09:10 03/23/17 04:01 (NS Flush) 2 ml UNSCH PRN IV FLUSH 03/20/17 09:15 Sodium Chloride 2 ml 2 ml BID IV FLUSH 03/20/17 21:00 03/22/17 09:18 Ceftriaxone Sodium 1000 mg/ Sodium Chloride 100 ml @ 200 mls/hr Q24H IV 03/20/17 11:00 03/22/17 12:24 (Zithromax Inj/ NS 250 ml Inj) 250 ml @ 250 mls/hr Q24H IV 03/20/17 10:00 03/23/17 07:46 (Zofran Inj) 4 mg Q6H PRN IV 03/20/17 09:15 (Heparin Inj) 5,000 units Q8H SQ 03/20/17 10:00 03/23/17 07:47 (Protonix Inj) 40 mg Q24H IV PUSH 03/20/17 11:00 03/22/17 12:24 (Tylenol) 650 mg Q6H PRN PO 03/21/17 18:00 03/23/17 04:01 (Deary 5-325 Mg) 1 tab Q4H PRN PO 03/21/17 18:00 (Deary 10-325 Mg) 1 tab Q4H PRN PO 03/21/17 18:00 03/23/17 08:03 (Morphine Inj) 4 mg Q3H PRN IV 03/21/17 18:00 (SoluMEDROL INJ) 40 mg DAILY IV 03/22/17 09:00 03/23/17 07:47 A/P Assessment and Plan 47-year-old female with past medical history of IV drug use and substance abuse presented to the [place] ED after an episode of acute psychosis suspected to be from cocaine and Flakka use. Patient presented with physical signs concerning for sepsis with the left lower lobe infiltrate as a possible source. Lactic acid was elevated at 4.3 on admission but has trended down to WNL. Patient was also diagnosed with rhabdomyolysis secondary to creatinine kinase elevated at 1000. She was admitted for treatment with IV fluids and IV antibiotics. The plan is to medically stabilize her before transfer for psychiatric care. Discharge Planning Pending resolution of rhabdomyolysis, pending psychiatric recommendations Problem List: (1) Severe sepsis Status: Resolved Plan: Patient is afebrile and vitals are within normal limits. -Lactic acid within normal limits -WBC WNL at 9.5 -Probable source of sepsis is left lower lobe infiltrate. Urinary tract infection is also in the differential with UA showing moderate occult blood few bacteria on catheterized specimen -Blood culture shows staph coagulase-negative in 1 aerobic vial on preliminary report - waiting on micro-lab to determine if this organism is a contaminant or not -Urine culture shows no growth in 48 hours -Patient on Rocephin 1 g IV once daily and azithromycin 500 mg IV once daily -Solu-Medrol 40 mg IV once daily -DuoNeb nebulizer 1 ampule every 6 hours -Respiratory incentive spirometer -Continue normal saline at 100 mls/hr -Zofran 4 mg IV when necessary nausea/vomiting (2) Substance-induced psychotic disorder with delusions Status: Acute Plan: -Psychiatry consulted, recommendations appreciated for possible inpatient psych placement -UDS positive for cocaine and cannabinoids. Pending more extensive urine drug screen -EKG on admission showed sinus tachycardia rate 134, incomplete right bundle- branch block pattern QRS 98 ms QT 343 with QTC of 422 ms -Will monitor patient closely for withdrawal symptoms -Currently no longer needing restraints -Cardiac telemetry with continuous vital signs -Continuous pulse oximetry with supplemental oxygen as needed -Fall precautions -Discontinue CIWA protocol (3) Rhabdomyolysis Status: Acute Plan: -CK down trended to 553 today -BUN/creatinine within normal limits -Will continue normal saline at 100 mL per hour (4) FEN/DVT PPX/GI PPX/Standard Orders Status: Acute Plan: Fluids: NS @ 100 mls/hr IV Electrolytes: Will monitor and replace as needed Nutrition: Regular adult diet DVT Prophylaxis: Heparin subcutaneous Q8h GI Prophylaxis: Protonix 40mg PO IV daily while on steroids Activity bed rest Monitor I's and O's Problem Qualifiers (1) Rhabdomyolysis: Qualified Code: M62.82 - Non-traumatic rhabdomyolysis Alek Dillon MD R2 March 23, 2017 08:24
[2017-03-23 08:30] LABS: AUTOMATED NEUTROPHIL # 4.9 TH/MM3 (1.8-7.7); BASOPHIL % 0.4 % (0.0-2.0); EOSINOPHIL % 0.2 % (0.0-4.0); HEMATOCRIT 31.3 % (35.0-46.0); HEMO FLAGS DIFF FINAL; LYMPH % 35.5 % (9.0-44.0); MEAN CELL VOLUME 91.5 FL (80.0-100.0); MEAN CORPUSCULAR HGB CONC 33.9 % (32.0-36.0); MONO % 5.8 % (0.0-8.0); NEUT % 58.1 % (16.0-70.0); PLATELET COUNT 385 TH/MM3 (150-450); RED BLOOD COUNT 3.42 MIL/MM3 (4.00-5.30); RED CELL DISTRIBUTION WIDTH 13.8 % (11.6-17.2); WHITE BLOOD COUNT 8.4 TH/MM3 (4.0-11.0)
[2017-03-23] MEDS: PANTOPRAZOLE SODIUM 40 MG VIAL IV PUSH SCH (11:48)
[2017-03-23] MEDS: cefTRIAXone INJ 1,000 MG in SODIUM CHLORIDE 0.9% INJ 100 ML IV SCH (11:48)
[2017-03-23 12:00] VITALS: BP 110/57; PULSE 62; RESP 16; TEMP 96.8; O2SAT 94
--- NOTE | 2017-03-23 14:39 | PD.CONS ---
Provisional Diagnosis Admission Date March 20, 2017 at 09:05 [place] I. Substance induced psychotic disorder [place] II. Deferred History of Present Illness Service Psychiatry Consult Requested By Primary Care Physician Unknown HPI The patient is a 47-year-old woman, homeless, single, unemployed, with psychiatric history of depression, cocaine, cannabis, flakka use disorder, seen by psychiatry about a month ago due to substance-induced psychosis, she also has a history of IV drug use, no previous psychiatric hospitalizations, no previous suicidal attempts, no significant medical history, who presented to the [place] ED after an episode of acute psychosis suspected to be from cocaine and Flakka use. Patient presented with physical signs concerning for sepsis with the left lower lobe infiltrate as a possible source. Lactic acid was elevated at 4.3 on admission but has trend down to WNL. Patient was also diagnosed with rhabdomyolysis secondary to creatinine kinase elevated at 1000. She was admitted for treatment with IV fluids and IV antibiotics. She was consulted to psychiatry for psychosis. On psychiatric evaluation today patient is found in her bed, calm, cooperative and pleasant. Patient explains that she was "acting a little crazy after isn't drugs"and she was brought to the hospital. She clarifies that she has been using crack cocaine,flakka and cannabis for a long time "but, I can understand what happened this time"she denies the use of alcohol and other drugs. At this moment patient denies depressive symptoms, she denies anhedonia, Denies hopelessness, she denies helplessness, she denies suicidal and homicidal ideation, she denies visual and auditory hallucinations. No paranoia, no delusions, no agitation, no aggressive behavior, no delusions of reference, no disorganized thought or behavior, no fluctuation of consciousness, attention deficit are present. Patient is oriented 3. Review of Systems Constitutional: DENIES: Diaphoretic episodes, Fatigue, Fever, Weight gain, Weight loss, Chills, Dizziness, Change in appetite, Night Sweats Endocrine: DENIES: Abnorml menstrual pattern, Heat/cold intolerance, Polydipsia , Polyuria, Polyphagia Eyes: DENIES: Blurred vision, Diplopia, Eye inflammation, Eye pain, Vision loss , Photosensitivity, Double Vision Ears, nose, mouth, throat: DENIES: Tinnitus, Hearing loss, Vertigo, Nasal discharge, Oral lesions, Throat pain, Hoarseness, Ear Pain, Running Nose, Epistaxis, Sinus Pain, Toothache, Odynophagia Respiratory: DENIES: Apneas, Cough, Snoring, Wheezing, Hemoptysis, Sputum production, Shortness of breath Cardiovascular: DENIES: Chest pain, Palpitations, Syncope, Dyspnea on Exertion , PND, Lower Extremity Edema, Orthopnea, Claudication Gastrointestinal: DENIES: Abdominal pain, Black stools, Bloody stools, Constipation, Diarrhea, Nausea, Vomiting, Difficulty Swallowing, Anorexia Genitourinary: DENIES: Abnormal vaginal bleeding, Dysmenorrhea, Dyspareunia, Sexual dysfunction, Urinary frequency, Urinary incontinence, Urgency, Hematuria , Dysuria, Nocturia, Vaginal discharge Musculoskeletal: DENIES: Joint pain, Muscle aches, Stiffness, Joint Swelling, Back pain, Neck pain Integumentary: DENIES: Abnormal pigmentation, Pruritus, Rash, Nail changes, Breast masses, Breast skin changes, Nipple discharge Hematologic/lymphatic: DENIES: Bruising, Lymphadenopathy Immunologic/allergic: DENIES: Eczema, Urticaria Neurologic: DENIES: Abnormal gait, Headache, Localized weakness, Paresthesias, Seizures, Speech Problems, Tremor, Poor Balance Psychiatric: DENIES: Anxiety, Confusion, Mood changes, Depression, Hallucinations, Agitation, Suicidal Ideation, Homicidal Ideation, Delusions Past Family Social History Coded Allergies: No Known Allergies (Verified , 03/20/17) Unable to Obtain Active Prescriptions or Reported Meds Current Medications Medications (Trade) Dose Ordered Sig/Goldie Route Start Time Stop Time Status Last Admin (NS 1000 ml Inj) 1,000 ml @ 100 mls/hr Q10H IV 03/20/17 09:10 03/23/17 14:23 (NS Flush) 2 ml UNSCH PRN IV FLUSH 03/20/17 09:15 Sodium Chloride 2 ml 2 ml BID IV FLUSH 03/20/17 21:00 03/22/17 09:18 Ceftriaxone Sodium 1000 mg/ Sodium Chloride 100 ml @ 200 mls/hr Q24H IV 03/20/17 11:00 03/23/17 11:48 (Zithromax Inj/ NS 250 ml Inj) 250 ml @ 250 mls/hr Q24H IV 03/20/17 10:00 03/23/17 07:46 (Zofran Inj) 4 mg Q6H PRN IV 03/20/17 09:15 (Heparin Inj) 5,000 units Q8H SQ 03/20/17 10:00 03/23/17 07:47 (Protonix Inj) 40 mg Q24H IV PUSH 03/20/17 11:00 03/23/17 11:48 (Tylenol) 650 mg Q6H PRN PO 03/21/17 18:00 03/23/17 04:01 (Fillmore 5-325 Mg) 1 tab Q4H PRN PO 03/21/17 18:00 (Fillmore 10-325 Mg) 1 tab Q4H PRN PO 03/21/17 18:00 03/23/17 08:03 (Morphine Inj) 4 mg Q3H PRN IV 03/21/17 18:00 (SoluMEDROL INJ) 40 mg DAILY IV 03/22/17 09:00 03/23/17 07:47 Family History Patient denies family psychiatric history Social History Patient was born and raising [place], she is homeless, single, unemployed, highest level of education is high school Patient's Strengths (min. 2) Verbal communication Physical Exam No tremors, no EPS, no gait disturbances, no psychomotor agitation or retardation present Vital Signs Vital Signs Date Time Temp Pulse Resp B/P Pulse Ox O2 Delivery O2 Flow Rate FiO2 03/23/17 12:00 96.8 62 16 110/57 94 03/21/17 10:09 21 03/20/17 16:40 Nasal Cannula 2.00 I/O 03/22/17 03/22/17 03/23/17 08:00 16:00 00:00 Intake Total 1079 ml 1256 ml 927 ml Output Total 0 ml Balance 1079 ml 1256 ml 927 ml Lab Results Toxicology is positive for cannabis and cocaine, BAL negative Mental Status Examination Appearance woman, good hygiene, [facility], age appearing, calm and cooperative Speech: Unremarkable Orientation: x3 Memory: Unremarkable Thought Process: Logical, Flight of Ideas Hallucination Type: None Suicidal Ideation: No Previous Suicide Attempts: No Homicidal Ideation: No Previous Homicide Attempts: No Insight: Good Judgment: WNL Mood: Appropriate Motor Activity: Normal gait Assessment & Plan Problem List: (1) Substance-induced psychotic disorder with delusions Assessment & Plan: At the moment of this evaluation the patient does not present any evidence of concerning, significant or acute objective or subjective depression, anxiety, psychosis or yrn. The patient denies suicidal and homicidal ideation, she denies visual and auditory hallucinations. Patient is logical, coherent and relevant in her conversation. Oriented 3. No agitation, no aggressive behavior, no fluctuation of consciousness, no attention deficit present. Recent episode of psychosis, as already happened in the past, seems to be secondary to the use of multiple psychoactive illegal drugs such as flakka, cocaine, syntectic marihuana. She does not meet criteria for psychiatric admission at this moment. Extensive support, motivation psycho education provided. Patient will benefit of a comprehensive rehabilitation program. Continue medical treatment. Galvez act will be lifted. ICD Code: F19.950 Assessment & Plan Estimated LOS: Sher Vu MD March 23, 2017 14:39
[2017-03-23 16:00] VITALS: BP 106/59; PULSE 73; RESP 16; TEMP 97; O2SAT 97
--- NOTE | 2017-03-23 16:16 | HHI.DCPOC ---
Discharge Care Plan Diagnosis: (1) Rhabdomyolysis (2) Substance-induced psychotic disorder with delusions Goals to Promote Your Health * To prevent worsening of your condition and complications * To maintain your health at the optimal level Do Not due drugs Drink plenty of fluids Directions to Meet Your Goals Take your medications as prescribed Follow your dietary instruction Follow activity as directed Keep your appointments as scheduled Take your immunizations and boosters as scheduled If your symptoms worsen call your PCP, if no PCP go to Urgent Care Center or Emergency Room Smoking is Dangerous to Your Health. Avoid second hand smoke Call the 24-hour hour crisis hotline for domestic abuse at Alek Diloln MD R2 March 23, 2017 16:16
--- NOTE | 2017-03-23 16:23 | HHI.DS ---
Discharge Summary Admission Date March 20, 2017 at 09:05 Discharge Date: March 23, 2017 Admitting Diagnosis sepsis, pneumonia, rhabdomyolisis, drug-induced psychosis (1) Severe sepsis Diagnosis: Principal Plan: Patient is afebrile and vitals are within normal limits. -Lactic acid within normal limits -WBC WNL at 9.5 -Probable source of sepsis is left lower lobe infiltrate. Urinary tract infection is also in the differential with UA showing moderate occult blood few bacteria on catheterized specimen -Blood culture shows staph coagulase-negative in 1 aerobic vial on preliminary report - waiting on micro-lab to determine if this organism is a contaminant or not -Urine culture shows no growth in 48 hours -Patient on Rocephin 1 g IV once daily and azithromycin 500 mg IV once daily -Solu-Medrol 40 mg IV once daily -DuoNeb nebulizer 1 ampule every 6 hours -Respiratory incentive spirometer -Continue normal saline at 100 mls/hr -Zofran 4 mg IV when necessary nausea/vomiting (2) Substance-induced psychotic disorder with delusions Diagnosis: Principal Plan: -Psychiatry consulted, recommendations appreciated for possible inpatient psych placement -UDS positive for cocaine and cannabinoids. Pending more extensive urine drug screen -EKG on admission showed sinus tachycardia rate 134, incomplete right bundle- branch block pattern QRS 98 ms QT 343 with QTC of 422 ms -Will monitor patient closely for withdrawal symptoms -Currently no longer needing restraints -Cardiac telemetry with continuous vital signs -Continuous pulse oximetry with supplemental oxygen as needed -Fall precautions -Discontinue CIWA protocol (3) Rhabdomyolysis Diagnosis: Principal Plan: -CK down trended to 553 today -BUN/creatinine within normal limits -Will continue normal saline at 100 mL per hour (4) FEN/DVT PPX/GI PPX/Standard Orders Diagnosis: Secondary Plan: Fluids: NS @ 100 mls/hr IV Electrolytes: Will monitor and replace as needed Nutrition: Regular adult diet DVT Prophylaxis: Heparin subcutaneous Q8h GI Prophylaxis: Protonix 40mg PO IV daily while on steroids Activity bed rest Monitor I's and O's Consultants Psychiatry Brief History At the time of examination, the pt was deeply asleep having been heavily sedated with Ativan due to agitation. Below is the HPI from the ED physician's note: '47-year-old female presents to the emergency department restrained by police and police custody with acute altered mental status agitation and fighting and acute psychosis. Patient was found running through the streets and into traffic by the police partially clothed. Patient had to be tackled to the ground to be restrained by the police who report she did sustain some abrasions to her chest wall and abdomen and trunk while fighting off the police and also ran directly into a wall while trying to escape the police; subsequently successfully apprehended and brought to the hospital. Patient mentioned intermittently through her confused and altered state possible ingestion of flocka, cocaine, and alcohol. Patient repeatedly states that she is being stabbed and that someone has taken her baby and that she is being poisoned. Additional information is unable to be obtained and not available." CBC/BMP: 03/23/17 0757 03/23/17 0609 Significant Findings Laboratory Tests Test 03/20/17 03/21/17 03/22/17 03/23/17 18:00 10:19 05:07 06:09 Chloride Level 109 MEQ/L 113 MEQ/L 113 MEQ/L 114 MEQ/L (98-107) (98-107) (98-107) (98-107) Calcium Level 7.8 MG/DL 8.2 MG/DL 8.4 MG/DL 7.9 MG/DL (8.5-10.1) (8.5-10.1) (8.5-10.1) (8.5-10.1) Total Creatine Kinase 1290 U/L 806 U/L 553 U/L (26-192) (26-192) (26-192) Creatine Kinase MB 7.5 NG/ML 6.0 NG/ML (0.5-3.6) (0.5-3.6) White Blood Count 11.1 TH/MM3 (4.0-11.0) Red Blood Count 3.56 MIL/MM3 3.45 MIL/MM3 (4.00-5.30) (4.00-5.30) Hemoglobin 10.8 GM/DL 10.5 GM/DL (11.6-15.3) (11.6-15.3) Hematocrit 32.6 % 31.4 % (35.0-46.0) (35.0-46.0) Neutrophils (%) (Auto) 88.7 % 88.5 % (16.0-70.0) (16.0-70.0) Lymphocytes (%) (Auto) 7.4 % 8.7 % (9.0-44.0) (9.0-44.0) Neutrophils # (Auto) 9.9 TH/MM3 8.4 TH/MM3 (1.8-7.7) (1.8-7.7) Lymphocytes # (Auto) 0.8 TH/MM3 0.8 TH/MM3 (1.0-4.8) (1.0-4.8) Carbon Dioxide Level 19.9 MEQ/L (21.0-32.0) Random Glucose 114 MG/DL (74-106) Potassium Level 3.3 MEQ/L (3.5-5.1) Test 03/23/17 07:57 Red Blood Count 3.42 MIL/MM3 (4.00-5.30) Hemoglobin 10.6 GM/DL (11.6-15.3) Hematocrit 31.3 % (35.0-46.0) Imaging Last Impressions Head CT 03/20/17616 Signed Impressions: Service Date/Time: Monday, March 20, 2017 06:57 - CONCLUSION: Normal examination. Tushar De La Torre MD Chest X-Ray 03/20/17616 Signed Impressions: Service Date/Time: Monday, March 20, 2017 08:24 - CONCLUSION: 1. Left lower lobe infiltrate. Tushar De La Torre MD PE at Discharge GENERAL: This is a well-developed patient, lying in bed, awake and alert SKIN: 5cm healing abrasion under chin, at least 3 abrasions 0.5cm lateral to her right eye, multiple abrasions on her right arm and hand, multiple IV track padgett on both hands and arms HEAD: Atraumatic. Normocephalic. No temporal or scalp tenderness. EYES: Pupils equal round and reactive. ENT: Nose without bleeding, purulent drainage or septal hematoma. Airway patent. NECK: Trachea midline. No JVD or lymphadenopathy. Supple, nontender, no meningeal signs. CARDIOVASCULAR: Irregular rate and rhythm without murmurs, gallops, or rubs. RESPIRATORY: Clear to auscultation. Breath sounds equal bilaterally. No wheezes , rales, or rhonchi. GASTROINTESTINAL: Abdomen soft, non-tender, nondistended. No guarding. MUSCULOSKELETAL: Extremities without clubbing, cyanosis, or edema. No joint tenderness, effusion, or edema noted. No calf tenderness. Mild tenderness to palpation of back NEUROLOGICAL: Motor and sensory grossly within normal limits. Hospital Course Patient was admitted on 03/20/17 for polysubstance abuse, rhabdomyolysis and leukocytosis. Her leukocytosis and rhado progressively improved with IV fluids. She was monitored and her mental state progressively improved over the next few days. She was evaluated by Psychiatry and her Galvez act was lifted. She was determined to be medically stable and her issues resolved. She was discharged home on 03/23/17. Pt Condition on Discharge: Stable Discharge Disposition: Discharge Home Discharge Instructions DIET: Follow Instructions for: As Tolerated, No Restrictions Activities you can perform: Regular-No Restrictions Follow up Referrals: PCP Follow-up - 1 Week Medication Profile: Unable to Obtain Active Prescriptions or Reported Meds Alek Dillon MD R2 March 23, 2017 16:23
[2017-03-24 11:37] LABS: ECSTASY (MDMA) UR NEG (NEG); HEROIN (6-ACETYLMORPHINE) UR NEG (NEG); K2 SPICE UR NEG (NEG); OBMETHADONE UR NEG (NEG); PHENCYCLIDINE URINE NEG (NEG)
[2017-03-24 11:38] LABS: BATH SALTS (MDPV) UR NEG (NEG); GABAPENTIN UR NEG (NEG); HYDROMORPHONE U NEG (NEG); OXYCODONE (PERCODAN) NEG (NEG)
== END 2017-03-23 18:00 | disposition home or self-care (01) | DRG 896 ==
LOC: NEPC 06:09 → NEDA 09:05 → N07B 12:45
PROVIDERS: ADMIT Family Medicine; ATTEND Family Medicine
DX: F19.959 Other psychoactive substance use, unspecified with psychoactive substance-induced psychotic disorder, unspecified (principal); A41.9 Sepsis, unspecified organism; R65.20 Severe sepsis without septic shock; M62.82 Rhabdomyolysis; N39.0 Urinary tract infection, site not specified; Z78.1 Physical restraint status; R91.8 Other nonspecific abnormal finding of lung field; S00.81XA Abrasion of other part of head, initial encounter; S40.811A Abrasion of right upper arm, initial encounter; X58.XXXA Exposure to other specified factors, initial encounter; Y93.89 Activity, other specified; Y92.410 Unspecified street and highway as the place of occurrence of the external cause; F17.210 Nicotine dependence, cigarettes, uncomplicated; Z59.0 Homelessness
CPT/HCPCS: 51702; 70450; 71010; 76937; 80048; 80053; 80307; 81001; 82550; 82552; 83605; 83735; 84443; 84484; 84703; 85025; 85610; 85730; 87040; 87077; 87086; 87186; 87205; 93005; 94150; 94640; 94664; 96361; 96365; 96375; 96376; C9113; G0481; J0456; J0692; J0696; J1644; J2060; J2405; J2920; J3370; J7030; J7050

== ENCOUNTER 2017-04-11 04:28 | Emergency (ER) | payer OTHER ==
[~2017-04-11] VITALS: Ht 182.9 cm; Wt 70.0 kg
[2017-04-11 04:29] VITALS: BP 141/71; PULSE 98; RESP 16; TEMP 97.9; O2SAT 95
[2017-04-11 05:16] VITALS: O2SAT 98
[2017-04-11 05:25] VITALS: BP 112/59; PULSE 83; RESP 20; TEMP 98.4; O2SAT 98
[2017-04-11 05:26] LABS: AUTOMATED NEUTROPHIL # 3.7 TH/MM3 (1.8-7.7); BASOPHIL # 0.1 TH/MM3 (0-0.2); BASOPHIL % 1.4 % (0.0-2.0); EOSINOPHIL # 0.1 TH/MM3 (0-0.4); EOSINOPHIL % 1.4 % (0.0-4.0); HEMATOCRIT 35.8 % (35.0-46.0); HEMO FLAGS DIFF FINAL; LYMPH % 29.2 % (9.0-44.0); LYMPHOCYTE # 1.9 TH/MM3 (1.0-4.8); MEAN CELL VOLUME 89.1 FL (80.0-100.0); MEAN CORPUSCULAR HEMOGLOBIN 30.3 PG (27.0-34.0); MONO % 9.2 % (0.0-8.0); NEUT % 58.8 % (16.0-70.0); PLATELET COUNT 522 TH/MM3 (150-450); RED BLOOD COUNT 4.02 MIL/MM3 (4.00-5.30); RED CELL DISTRIBUTION WIDTH 14.4 % (11.6-17.2); WHITE BLOOD COUNT 6.4 TH/MM3 (4.0-11.0)
--- NOTE | 2017-04-11 05:34 | PD ---
HPI Chief Complaint: Respiratory Symptoms Time Seen by Provider: 04:56 Travel History International Travel<30 days: No Contact w/Intl Traveler<30days: No Traveled to known affect area: No History of Present Illness HPI 47-year-old female complains of coughing congestion shortness of breath and abdominal bloating abdominal pain with nausea and vomiting. Patient states that the symptoms started 2 days ago. Patient states the cough is persistent and productive. Patient denies any fever chills. Patient denies any chest pain. Patient states that she has sharp intermittent pain epigastric and upper abdomen. Patient states that the pain radiates to the back. Patient states that she has intermittent nausea vomiting but no diarrhea. Patient has history EtOH abuse. Patient also has history of crack cocaine abuse. Patient states that she smoked some weed recently. PFSH Past Medical History Cancer: No Cardiovascular Problems: Yes (hx of heart murmur) Diminished Hearing: No Endocrine: No Gastrointestinal Disorders: No Genitourinary: No Immune Disorder: No Implanted Vascular Access Dvce: No Medical other: Yes (STATES SHE HAS BEEN IN CHF BEFORE ) Musculoskeletal: No Neurologic: No Psychiatric: No Reproductive: No Respiratory: No Immunizations Current: Yes ?: Not : 5 Para: 3 Miscarriage: 1 : 1 Past Surgical History Surgical History: No Previous Surgery Social History Alcohol Use: Yes Tobacco Use: Yes Substance Use: Yes ("weed and crack") Allergies-Medications (Allergen,Severity, Reaction): Coded Allergies: No Known Allergies (Verified , 03/20/17) Reported Meds & Prescriptions Reported Meds & Active Scripts Active Bentyl (Dicyclomine HCl) 10 Mg Cap 10 Mg PO TID PRN Carafate (Sucralfate) 1 Gm Tab 1 Gm PO QID On empty stomach Protonix (Pantoprazole Sodium) 20 Mg Tab 20 Mg PO DAILY Zithromax Z-Ottoniel (Azithromycin) 250 Mg Dspk 250 Mg PO DIRECTED 500 MG (2 tabs) day 1, then 1 tab days 2-5. Review of Systems General / Constitutional: No: Fever Eyes: No: Visual changes HENT: No: Headaches Cardiovascular: No: Chest Pain or Discomfort Respiratory: Positive: Cough, No: Shortness of Breath Gastrointestinal: Positive: Nausea, Vomiting, Abdominal Pain Genitourinary: No: Dysuria Musculoskeletal: No: Pain Skin: No Rash Neurologic: No: Weakness Psychiatric: No: Depression Endocrine: No: Polydipsia Hematologic/Lymphatic: No: Easy Bruising Physical Exam Narrative GENERAL: Well-nourished, well-developed patient. SKIN: Focused skin assessment warm/dry. HEAD: Normocephalic. EYES: No scleral icterus. No injection or drainage. NECK: Supple, trachea midline. No JVD or lymphadenopathy. CARDIOVASCULAR: Regular rate and rhythm without murmurs, gallops, or rubs. RESPIRATORY: Breath sounds equal bilaterally. No accessory muscle use. GASTROINTESTINAL: Abdomen soft, nondistended. Patient has moderate tenderness on palpation epigastric area. No rebound tenderness. No mass. MUSCULOSKELETAL: No cyanosis, or edema. BACK: Nontender without obvious deformity. No CVA tenderness. Neurologic exam normal. Data Data Last Documented VS Vital Signs Date Time Temp Pulse Resp B/P Pulse Ox O2 Delivery O2 Flow Rate FiO2 04/11/17 05:25 98.4 83 20 112/59 98 Room Air Orders Electrocardiogram (04/11/17 05:07) Complete Blood Count With Diff (04/11/17 05:07) Comprehensive Metabolic Panel (04/11/17 05:07) Creatine Kinase (Cpk) (04/11/17 05:07) Troponin I (04/11/17 05:07) B-Type Natriuretic Peptide (04/11/17 05:07) Prothrombin Time / Inr (Pt) (04/11/17 05:07) Act Partial Throm Time (Ptt) (04/11/17 05:07) Lipase (04/11/17 05:07) Urinalysis - C+S If Indicated (04/11/17 05:07) Chest, Single Ap (04/11/17 05:07) Iv Access Insert/Monitor (04/11/17 05:07) Ecg Monitoring (04/11/17 05:07) Oximetry (04/11/17 05:07) Drug Screen, Random Urine (04/11/17 05:07) Alcohol (Ethanol) (04/11/17 05:07) Labs Laboratory Tests Test 04/11/17 04/11/17 05:10 05:40 White Blood Count 6.4 TH/MM3 Red Blood Count 4.02 MIL/MM3 Hemoglobin 12.2 GM/DL Hematocrit 35.8 % Mean Corpuscular Volume 89.1 FL Mean Corpuscular Hemoglobin 30.3 PG Mean Corpuscular Hemoglobin 34.0 % Concent Red Cell Distribution Width 14.4 % Platelet Count 522 TH/MM3 Mean Platelet Volume 6.7 FL Neutrophils (%) (Auto) 58.8 % Lymphocytes (%) (Auto) 29.2 % Monocytes (%) (Auto) 9.2 % Eosinophils (%) (Auto) 1.4 % Basophils (%) (Auto) 1.4 % Neutrophils # (Auto) 3.7 TH/MM3 Lymphocytes # (Auto) 1.9 TH/MM3 Monocytes # (Auto) 0.6 TH/MM3 Eosinophils # (Auto) 0.1 TH/MM3 Basophils # (Auto) 0.1 TH/MM3 CBC Comment DIFF FINAL Differential Comment Prothrombin Time 11.0 SEC Prothromb Time International 1.0 RATIO Ratio Activated Partial 26.4 SEC Thromboplast Time Sodium Level 140 MEQ/L Potassium Level 3.6 MEQ/L Chloride Level 107 MEQ/L Carbon Dioxide Level 24.0 MEQ/L Anion Gap 9 MEQ/L Blood Urea Nitrogen 12 MG/DL Creatinine 0.70 MG/DL Estimat Glomerular Filtration 90 ML/MIN Rate Random Glucose 76 MG/DL Calcium Level 8.3 MG/DL Total Bilirubin 0.4 MG/DL Aspartate Amino Transf 20 U/L (AST/SGOT) Alanine Aminotransferase 24 U/L (ALT/SGPT) Alkaline Phosphatase 83 U/L Total Creatine Kinase 188 U/L Troponin I LESS THAN 0.02 NG/ML B-Type Natriuretic Peptide 17 PG/ML Total Protein 7.4 GM/DL Albumin 2.6 GM/DL Lipase 181 U/L Ethyl Alcohol Level LESS THAN 3 MG/DL Urine Color YELLOW Urine Turbidity HAZY Urine pH 5.5 Urine Specific [place] 1.020 Urine Protein TRACE mg/dL Urine Glucose (UA) NEG mg/dL Urine Ketones NEG mg/dL Urine Occult Blood MOD Urine Nitrite NEG Urine Bilirubin NEG Urine Urobilinogen 2.0 MG/DL Urine Leukocyte Esterase LARGE Urine RBC 20-24 /hpf Urine WBC 3-5 /hpf Urine Squamous Epithelial 0-5 /hpf Cells Urine Bacteria FEW /hpf Urine Hyaline Casts 0-2 /lpf Urine Mucus MOD /lpf Urine Trichomonas OCC Microscopic Urinalysis Comment CULT NOT INDICATED MDM Medical Decision Making Medical Screen Exam Complete: Yes Emergency Medical Condition: Yes Interpretation(s) 5:42 AM. Chest x-ray showed mild atelectasis left lung base. CBC within normal limit. Platelet 522. 6:01 AM. CMP within normal limit. Cardiac enzymes are normal. UA positive for leukocyte and blood. Differential Diagnosis Differential diagnosis including bronchitis, pneumonia, PE, pneumothorax, gastritis, PUD, pancreatitis, cholecystitis, colitis, UTI, pyelonephritis, nephrolithiasis. Narrative Course 47-year-old female with productive cough, abdominal pain, nausea vomiting. History of substance abuse. Diagnosis Primary Impression: Bronchitis Additional Impressions: Atypical chest pain Gastritis Qualified Code: K29.00 - Acute gastritis without hemorrhage, unspecified gastritis type UTI (urinary tract infection) Qualified Code: N30.00 - Acute cystitis without hematuria Substance abuse Patient Instructions: General Instructions Additional Instructions: Take medications as directed. Follow-up with personal physician. Return if worse. Return immediately if increasing chest pain or shortness of breath. Follow-up with GI specialist for abdominal pain. Med/Other Pt SpecificInfo: Prescription(s) given Scripts Sulfamethoxazole-Trimethoprim (Bactrim DS)800-160 Mg Tab1 Tab PO BID #14 TAB Prov:Jonathan Lou MD 04/11/17 Dicyclomine (Bentyl)10 Mg Cap10 Mg PO TID PRN (PAIN SCALE 1 TO 10) #21 CAP Ref 0 Prov:Jonathan Lou MD 04/11/17 Sucralfate (Carafate)1 Gm Tab1 Gm PO QID #120 TAB Ref 0 On empty stomach Prov:Jonathan Lou MD 04/11/17 Pantoprazole (Protonix)20 Mg Tab20 Mg PO DAILY #30 TAB Prov:Jonathan Lou MD 04/11/17 Azithromycin (Zithromax Z-Ottoniel)250 Mg Gmbt112 Mg PO DIRECTED #1 DSPK 500 MG (2 tabs) day 1, then 1 tab days 2-5. Prov:Jonathan Lou MD 04/11/17 Disposition: DISCHARGE HOME Condition: Stable Jonathan Lou MD Apr 11, 2017 05:34
--- NOTE | 2017-04-11 05:36 | RADRPT ---
EXAM DATE/TIME: 04/11/2017 05:20 [facility] COMPARISON: CHEST SINGLE AP, March 20, 2017, 8:24. INDICATIONS : Shortness of breath. MEDICAL HISTORY : None. SURGICAL HISTORY : None. ENCOUNTER: Initial ACUITY: 1 day PAIN SCORE: 0/10 LOCATION: Bilateral chest FINDINGS: A single view of the chest demonstrates more indistinctness of left hemidiaphragm likely overlying at electasis. The cardiomediastinal contours are unremarkable. Osseous structures are intact. CONCLUSION: Mild atelectasis left lung base. Rest of the lungs are clear Tj Bernal MD on April 11, 2017 at 5:34 Board Certified Radiologist. This report was verified electronically.
[2017-04-11 05:38] LABS: ALT (GPT) 24 U/L (10-53); ANION GAP 9 MEQ/L (5-15); APTT (PATIENT) 26.4 SEC (24.3-30.1); AST (GOT) 20 U/L (15-37); BLOOD UREA NITROGEN 12 MG/DL (7-18); CHLORIDE 107 MEQ/L (98-107); GLOMERULAR FILTRATION RATE 90 ML/MIN (>89); POTASSIUM 3.6 MEQ/L (3.5-5.1); SODIUM (NA) 140 MEQ/L (136-145)
[2017-04-11 05:43] LABS: ALKALINE PHOSPHATASE 83 U/L (45-117); CREATINE KINASE 188 U/L (26-192); TOTAL BILIRUBIN ADULT 0.4 MG/DL (0.2-1.0)
[2017-04-11 05:54] LABS: BLOOD, URINE MOD (NEG); GLUCOSE,URINE NEG (NEG); KETONE, URINE NEG (NEG); NITRITE,URINE NEG (NEG); PH, URINE 5.5 (5.0-8.5); URINE COLOR YELLOW (YELLW/STRAW)
[2017-04-11 06:06] LABS: MUCUS URINE MOD /lpf (OCC)
[2017-04-11 06:07] LABS: BACTERIA, URINE FEW /hpf; COMMENT (UR) CULT NOT INDICATED; CULTURE IF INDICATED CULT NOT INDICATED; HYALINE CAST, URINE 0-2 /lpf (RARE); SQUAMOUS EPITHELIAL CELL URINE 0-5 /hpf (0-5)
[2017-04-11] MEDS ORDERED: DICY10 PO (06:09)
[2017-04-11] MEDS ORDERED: ZITHTAB PO (06:09)
[2017-04-11] MEDS ORDERED: PANT20 PO (06:09)
[2017-04-11] MEDS ORDERED: CARA1TAB6 PO (06:09)
[2017-04-11] MEDS ORDERED: BACT800T5 PO (06:10)
[2017-04-11 06:11] LABS: AMPHETAMINE, URINE NEG (NEG); BARBITURATES, URINE NEG (NEG); COCAINE, URINE POS (NEG)
--- NOTE | 2017-04-11 14:33 | EKG ---
Date Performed: 04/11/2017 Time Performed: 05:03:31 PTAGE: 47 years EKG: Sinus rhythm Compared to the previous tracing the ST T wave abnormalitis have resolved and ectopy is no longer pr esent NORMAL ECG PREVIOUS TRACING : 03/20/2017 06.33 DOCTOR: Sean Callahan Interpretating Date/Time 04/11/2017 14:33:24
== END 2017-04-11 06:45 | disposition home or self-care (01) ==
LOC: NEPC 04:28
DX: J40 Bronchitis, not specified as acute or chronic (principal); K29.00 Acute gastritis without bleeding; N30.00 Acute cystitis without hematuria; F14.10 Cocaine abuse, uncomplicated; F12.10 Cannabis abuse, uncomplicated; F10.10 Alcohol abuse, uncomplicated; Y90.0 Blood alcohol level of less than 20 mg/100 ml; Z72.0 Tobacco use
CPT/HCPCS: 71010; 80053; 80307; 81001; 82550; 83690; 83880; 84484; 85025; 85610; 85730; 93005; 99285

== ENCOUNTER 2018-08-10 16:12 | Observation (INO) ==
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
[2018-08-10] MEDS ORDERED: Ketorolac Inj 30 MG/ML (IVP) Vial IV.PUSH ONE (20:00)
[2018-08-10] MEDS ORDERED: Sod Chloride 0.9% Inj 1,000 ML IV.SIG SCH (20:00)
[2018-08-10 20:41] LABS: Baso # (Auto) 0.1 th/mm3 (0.0-0.2); Baso % (Auto) 1.1 % (0.0-2.0); Eos % (Auto) 0.3 % (0.0-4.0); Hematocrit 43.2 % (35.0-46.0); Hemoglobin 15.1 gm/dL (11.6-15.3); Lymph # (Auto) 2.1 th/mm3 (1.0-4.8); Lymph % (Auto) 23.6 % (9.0-44.0); Mean Corpuscular HGB Conc 34.9 % (32.0-36.0); Mean Corpuscular Hemoglobin 32.5 pg (27.0-34.0); Mean Platelet Volume 7.2 fL (7.0-11.0); Mono # (Auto) 0.7 th/mm3 (0.0-0.9); Mono % (Auto) 8.1 % (0.0-8.0); Neut % (Auto) 66.9 % (16.0-70.0); Platelet Count 407 th/mm3 (150-450); Red Blood Count 4.64 mil/mm3 (4.00-5.30); Red Cell Distribution Width 12.1 % (11.6-17.2); White Blood Count 8.9 th/mm3 (4.0-11.0)
[2018-08-10 20:48] LABS: Chloride 101 meq/L (98-107); Potassium 3.8 meq/L (3.5-5.1); Sodium 135 meq/L (136-145)
[2018-08-10 20:51] LABS: Anion Gap 9 meq/L (5-15); Blood Urea Nitrogen 10 mg/dL (7-18); Calcium 8.2 mg/dL (8.5-10.1); Carbon Dioxide 24.6 meq/L (21.0-32.0); Glucose,Random 99 mg/dL (74-106)
[2018-08-10 20:54] LABS: Glomerular Filtration Rate 78 mL/min (>89)
--- NOTE | 2018-08-10 21:35 | MR ---
EXAM DATE: 08/10/2018 8:10 PM EDT AGE/SEX: 48 years / Female INDICATIONS: Radiculopathy. Pain and numbness on left side. CLINICAL DATA: This is the patient's initial encounter. Patient reports that signs and symptoms have been present for 1 day and indicates a pain score of 7/10. MEDICAL/SURGICAL HISTORY: None. None. COMPARISON: [facility], CT CERVICAL SPINE W/O CONTRAST, 08/10/2018. . TECHNIQUE: Multiplanar, multisequence MRI examination of the cervical spine was performed without co ntrast. FINDINGS: Vertebrae: Normal vertebral body height. Homogeneous marrow signal. Alignment: Normal. Cord: Normal configuration and signal. Post Fossa: The cerebellar tonsils are normal in position. C2-C3: The thecal sac has a normal configuration. There is no evidence of disc herniation or spinal canal stenosis. The neural foramina are patent bilaterally. C3-C4: The thecal sac has a normal configuration. There is no evidence of disc herniation or spinal canal stenosis. The neural foramina are patent bilaterally. C4-C5: The disc is slightly desiccated. Minimal loss of height. There is a small, broad central to r ight paracentral/foraminal disc protrusion with mild bilateral uncovertebral and facet osteoarthritis there is mild right foraminal stenosis. C5-C6: The disc is desiccated and has moderate loss of height. There is a small to moderate, broad/d iffuse posterior disc osteophyte complex and moderate bilateral uncovertebral and facet osteoarthriti s. There is mild spinal stenosis without cord compression or cord signal abnormality. There is modera te right and mild left foraminal stenosis. C6-C7: The disc is desiccated and has moderate to severe loss of height. Moderate to large, broad po sterior disc osteophyte complex present and with moderate bilateral uncovertebral and facet osteoarth ritis. There is moderate spinal stenosis and short segment cord compression. No cord signal abnormali ty. There is moderate to severe bilateral foraminal stenosis. C7-T1: No epidural impressions seen. CONCLUSION: 1. No fracture, subluxation or other acute abnormality. 2. Multilevel degenerative changes as described above. 3. Moderate spinal stenosis with short segment cord compression and moderate to severe bilateral for aminal stenosis at C6/C7. No cord signal abnormality. 4. Mild spinal stenosis and moderate right, mild left foraminal stenosis at C5/C6. 5. Mild foraminal stenosis on the right at C4/C5. Electronically signed by: Tomer Bynum MD 08/10/2018 9:34 PM EDT
[2018-08-10] MEDS ORDERED: Bisacodyl 10 MG Supp RECTAL PRN (22:27)
[2018-08-10] MEDS ORDERED: Acetaminophen 325 MG Tablet PO PRN (22:27)
[2018-08-10] MEDS: Sod Chloride 0.9% Inj 1,000 ML IV.CONT SCH (23:38)
[2018-08-11] MEDS ORDERED: Dexamethasone Inj 20 MG/5 ML Vial IV.PUSH ONE (03:32)
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
[2018-08-11 08:00] LABS: Calcium 7.6 mg/dL (8.5-10.1); Carbon Dioxide 25.5 meq/L (21.0-32.0); Potassium 3.7 meq/L (3.5-5.1)
[2018-08-11 08:19] LABS: Baso % (Auto) 0.3 % (0.0-2.0); Eos % (Auto) 0.5 % (0.0-4.0); Hematocrit 41.2 % (35.0-46.0); Hemoglobin 14.4 gm/dL (11.6-15.3); Lymph % (Auto) 13.8 % (9.0-44.0); Mean Corpuscular Hemoglobin 32.3 pg (27.0-34.0); Mean Corpuscular Volume 92.1 fL (80.0-100.0); Mean Platelet Volume 7.7 fL (7.0-11.0); Mono # (Auto) 0.3 th/mm3 (0.0-0.9); Mono % (Auto) 4.7 % (0.0-8.0); Neut # (Auto) 5.7 th/mm3 (1.8-7.7); Neut % (Auto) 80.7 % (16.0-70.0); Platelet Count 317 th/mm3 (150-450); Red Blood Count 4.47 mil/mm3 (4.00-5.30); Red Cell Distribution Width 12.9 % (11.6-17.2); White Blood Count 7.1 th/mm3 (4.0-11.0)
[2018-08-11 08:22] VITALS: O2SAT 97
--- NOTE | 2018-08-11 10:35 | P.PNIM ---
Subjective Interval history: in no acute distress. still has some tingling of the left hand but she says that the tingling of the right hand/arm is better. no other complaints. Physical Exam Vital signs: Vital Signs 08/10/18 16:33 08/10/18 22:29 08/11/18 00:30 Temperature 98.7 F Pulse Rate 110 H 82 57 L Respiratory Rate 16 15 15 Blood Pressure 103/55 L 101/58 L 113/73 Pulse Oximetry 97 98 97 08/11/18 00:58 08/11/18 03:21 08/11/18 08:00 Temperature 98.7 F 98.5 F 97.9 F Pulse Rate 82 77 65 Respiratory Rate 17 17 12 Blood Pressure 102/53 L 89/53 L 85/53 L Pulse Oximetry 96 95 97 Intake & Output 08/10/18 08/11/18 08/11/18 18:59 06:59 18:59 Intake Total 1000 / 1000 Balance 1000 / 1000 Weight 88.952 kg 88.904 kg Intake: IV 1000 / 1000 NS Inj 1,000 ML @ Wide Open IV. 1000 / 1000 SIG BOLUS ERASMO Rx#:[id number] Other: # Voids 1 Date of Last Bowel Movement 08/09/18 Weight On Admission 88.95 kg - Constitutional no acute distress - Routine Respiratory Exam Present: CTA bilaterally - Routine Cardiovascular Exam Present: RRR - Routine Abdominal Exam Present: soft - Routine Extremities Exam Comments: no pedal edema. - Routine Neurological Exam Present: alert, oriented X3 Results - Labs CBC & Chem 7: 08/11/18 07:09 08/11/18 07:09 Laboratory Results - last 24 hr 08/10/18 08/10/18 08/11/18 20:30 20:30 07:09 CBC w Diff Auto diff final WBC 8.9 7.1 RBC 4.64 4.47 Hgb 15.1 14.4 Hct 43.2 41.2 MCV 93.0 92.1 MCH 32.5 32.3 MCHC 34.9 35.0 RDW 12.1 12.9 Plt Count 407 317 MPV 7.2 7.7 Neut % (Auto) 66.9 80.7 H Lymph % (Auto) 23.6 13.8 [place] % (Auto) 8.1 H 4.7 Eos % (Auto) 0.3 0.5 Baso % (Auto) 1.1 0.3 Neut # (Auto) 6.0 5.7 Lymph # (Auto) 2.1 1.0 [place] # (Auto) 0.7 0.3 Eos # (Auto) 0.0 0.0 Baso # (Auto) 0.1 0.0 WBC Differential . . Differential Comment . Auto diff final Sodium 135 L Potassium 3.8 Chloride 101 Carbon Dioxide 24.6 Anion Gap 9 BUN 10 Creatinine 0.79 Estimated GFR 78 L Random Glucose 99 Calcium 8.2 L Serum Alcohol Less than 3 08/11/18 07:09 CBC w Diff WBC RBC Hgb Hct MCV MCH MCHC RDW Plt Count MPV Neut % (Auto) Lymph % (Auto) [place] % (Auto) Eos % (Auto) Baso % (Auto) Neut # (Auto) Lymph # (Auto) [place] # (Auto) Eos # (Auto) Baso # (Auto) WBC Differential Differential Comment Sodium 139 Potassium 3.7 Chloride 106 Carbon Dioxide 25.5 Anion Gap 8 BUN 13 Creatinine 0.83 Estimated GFR 74 L Random Glucose 104 Calcium 7.6 L Serum Alcohol - Imaging Impressions Cervical Spine CT 08/10/18 17:46 CONCLUSION: 1. Intact cervical spine. 2. Substantial degenerative changes at C5/C6 and C6/C7 as described. Associated mild spinal stenosis and moderate right, mild left foraminal stenosis at C5/C6. There is moderate spinal stenosis and [id number] bilateral foraminal stenosis at C6/C7. No convincing evidence of an acute disc herniation. Cervical Spine MRI 08/10/18 20:00 CONCLUSION: 1. No fracture, subluxation or other acute abnormality. 2. Multilevel degenerative changes as described above. 3. Moderate spinal stenosis with short segment cord compression and moderate to severe bilateral foraminal stenosis at C6/C7. No cord signal abnormality. 4. Mild spinal stenosis and moderate right, mild left foraminal stenosis at C5/ C6. 5. Mild foraminal stenosis on the right at C4/C5. Assessment and Plan - Plan Ms. Whitman is a 48 y/o female with a history of bipolar disorder who presented to the emergency room complaining of neck pain with fingertip paresthesias. Cervical spine MRI showed moderate spinal stenosis with short segment cord compression and moderate to severe bilateral foraminal stenosis at C6/C7. Neurosurgical consultation was obtained and the patient was kept in a cervical collar and transferred to [facility] main for observation and management. Mild cervical spine injury - Cervical spine MRI showed moderate spinal stenosis with short segment cord compression and moderate to severe bilateral foraminal stenosis at C6/C7 - Neurosurgery consulted - appreciate assistance - Decadron 4 mg q6h IV for now pending neurosurgical evaluation - NPO pending neurosurgery consultation - IVF hydration with NS at 100 cc/hr Tobacco abuse - instructed cessation DVT prophylaxis - SCDs Discharge Planning: awaiting neurosurgery evaluation.
[2018-08-11] MEDS: Sod Chloride 0.9% Inj 1,000 ML IV.CONT SCH (10:48)
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
[2018-08-11 12:48] VITALS: BP 121/75; PULSE 66; RESP 14; TEMP 97.5
--- NOTE | 2018-08-11 12:55 | P.PNADD ---
Addendum to Inpatient Note Reason for Addendum: Additional Documentation (neurosurgery evaluation appreciated; patient was cleared for discharge with outpatient f/u- cervical collar was removed. BP was on low side earlier today which has improved - patient overall feeling better and wants to go home- patient will be discharged home with outpatient follow-up.)
== END 2018-08-11 14:25 | disposition home or self-care (01) ==
LOC: PHEDA 16:12 → PHED 16:12 → PHEDA 08-11 00:31 → NEPGCP 08-11 01:09
PROVIDERS: ADMIT Internal Medicine; ATTEND Internal Medicine